=== PATIENT | male | born 1940 | race Caucasian/White ===

== ENCOUNTER 2025-07-07 12:38 | Outpatient (REF) | payer MEDICARE, SELFPAY ==
--- OUTSIDE RECORDS SUMMARY | 2025-07-07 15:45 | XMS_ITS | Clinical Summary ---
Author Organization [facility] Address [address] [place] [address] Phone Care Team Providers Care Shingles Roofer Name Role Phone Diana Maldonado MD Primary Care Provider Allergies Active Allergy Reactions Criticality Noted Date Comments Codeine Anaphylaxis High 07/09/2024 Medications aspirin 81 mg EC tablet 1 TABLET DAILY 12/15/19 08 Active saccharomyces boulardii (FLORASTOR) 250 mg capsule Active metoprolol succinate (TOPROL-XL) 50 mg 24 hr tabletIndication s:Permanent atrial fibrillation (CMS/HCC V24, CMS/HCC V28) TAKE 1 TABLET BY MOUTH EVERY DAY 90 tablet 3 11/17/19 25 Active warfarin (COUMADIN) 5 mg tablet TAKE 1 TABLET BY MOUTH DAILY DIRECTED 90 tablet 2 11/17/19 25 Active atorvastatin (LIPITOR) 20 mg tablet TAKE 1 TABLET (20 MG TOTAL) BY MOUTH ONE TIME EACH DAY 90 tablet 1 02/01/20 25 Active meclizine (ANTIVERT) 12.5 mg tabletIndication s:Dizziness Take 1 tablet (12.5 mg total) by mouth 3 (three) times a day if needed for dizziness. 30 tablet 02/09/20 25 Active tamsulosin (FLOMAX) 0.4 mg 24 hr capsuleIndicatio ns:Chronic obstructive pulmonary disease, unspecified (CMS/HCC V24, CMS/HCC V28),Unspecified atrial fibrillation (CMS/HCC V24, CMS/HCC V28) TAKE 1 CAPSULE BY MOUTH DAILY. TAKE 30 MINS AFTER SAME MEAL EVERY DAY. 90 capsule 1 02/15/20 Active DILT-XR 120 mg 24 hr capsuleIndicatio ns:Primary hypertension TAKE 1 CAPSULE BY MOUTH DAILY FOR 360 DAYS. 90 capsule 3 02/15/20 Active finasteride (PROSCAR) 5 mg tablet TAKE 1 TABLET BY MOUTH EVERY DAY 90 tablet 1 05/27/20 Active PARoxetine (PAXIL) 20 mg tablet TAKE 1 TABLET BY MOUTH EVERY DAY IN THE MORNING 90 tablet 1 07/04/20 25 Active PARoxetine (PAXIL) 20 mg tablet TAKE 1 TABLET BY MOUTH EVERY DAY IN THE MORNING 90 tablet 1 01/11/20 25 025 Discontinued Active Problems Problem Noted Date Diagnosed Date Atrial fibrillation [place] [place] [facility] [place]) 1 09/06/2023 Syncope 03/19/2024 Overview (07/19/2024): Last Assessment & Plan: Patient recently experienced an episode of elevated heart rate accompanied by diaphoresis, shortness of breath and possible syncope. He was alone at the time and he is unsure if he passed out. He was feeling unwell and got himself to the ground where he laid for approximately 20 minutes prior to feeling better and then driving himself home. We will arrange for a nuclear stress test to assess for any Evidence of ischemia given his diaphoresis and arrange for a data processing equipment repairer to assess for any significant cardiac rhythm abnormalities. He has an echocardiogram scheduled for later this year. PVD (peripheral vascular disease) ([facility] [place]) 11/27/2023 Overview (07/19/2024): Last Assessment & Plan: Patient with a history of peripheral vascular disease has been followed by vascular medicine Thoracic aneurysm, ruptured ([facility]24, [facility] V28) 11/27/2023 Overview (07/19/2024): Last Assessment & Plan: Patient's echocardiogram has shown mild dilatation of the ascending aorta. No significant changes on most recent echocardiogram. Deep vein thrombosis (DVT) o f proximal vein of left lower extremity ([facility] [place] [facility] [place]28) 02/14/2023 Renal cyst 09/13/2008 Overview (07/19/2024): Septated, left 09/02, stable 12/02, repeat 6 months Depression with anxiety 09/09/2007 Hypercholesteremia 09/09/2007 Overview (07/19/2024): On med since 1995 Last Assessment & Plan: Patient continues on atorvastatin 20 mg once a day. I have reviewed with the patient the importance of a heart healthy lifestyle which includes eating a low-fat low- salt diet, getting regular exercise, maintaining a healthy weight, not smoking, and following up with routine medical care. Hypertension 09/09/2007 Overview (07/19/2024): DX 1996 Last Assessment & Plan: Patient is blood pressure under excellent control with a reading today of 128/84. He will continue on his present dose of diltiazem as prescribed. 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 He did have a recent COPD exacerbation precipitated by rhinovirus. I do think that with the evidence that we have we can plan ahead with the followin. Referral to the lung cancer screening clinic 2. Encouraged him to continue with abstinence of smoking 3. Start Anoro/Ellipta. Technique has been taught 4. Continue with albuterol as needed 5. Return to clinic in 3 months Tobacco use disorder 09/09/2007 Overview (07/19/2024): Nl echo 12/31 Weight loss 09/09/2007 Encounters Date Type Department Care Team Description 06/27/2025 Telephone Adult Medicine [place] [address] [place] [address] Diana Maldonado MD 06/27/2025 Telephone [facility] [address] [place] [address] Azael Lei MD 06/27/2025 Telephone Adult Medicine - [address] [phone] Diana Maldonado MD 06/24/2025 11:05 AM EDT Lab Draw Station - [place] [address] [place] [address] Atrial fibrillation, unspecified type (CMS/HCC V24, CMS/HCC V28) 06/24/2025 Anticoagulation - Warfarin Visit [facility] [address] [place] [phone] Azael Lei MD Atrial fibrillation, unspecified type (CMS/HCC V24, CMS/HCC V28) (Primary Dx) 06/06/2025 Anticoagulation - Warfarin Visit [facility] [address] [place] [address] Azael Lei MD Atrial fibrillation, unspecified type (CMS/HCC V24, CMS/HCC V28) (Primary Dx) 05/30/2025 Anticoagulation - Warfarin Visit [facility] [address] [place] [address] Azael Lei MD Atrial fibrillation, unspecified type (CMS/HCC V24, CMS/HCC V28) (Primary Dx) 05/02/2025 Anticoagulation - Warfarin Visit [facility] [address] [place] [address] Azael Lei MD Atrial fibrillation, unspecified type (CMS/HCC V24, CMS/HCC V28) (Primary Dx) 04/20/2025 9:30 AM EDT Office Visit Vascular Surgery - [place] [address] [place] [address] Casandra Arias MD PAD (peripheral artery disease) (CMS/HCC V24) (Primary Dx) 04/15/2025 Anticoagulation - Warfarin Visit [facility] [address] [place] [address] Azael Lei MD Atrial fibrillation, unspecified type (CMS/HCC V24, CMS/HCC V28) (Primary Dx) 04/08/2025 Anticoagulation - Warfarin Visit [facility] [address] [facility] [address] [place] [address] Azael Lei MD Atrial fibrillation, unspecified type (CMS/HCC V24, CMS/HCC V28) (Primary Dx) from Last 3 Months Immunizations Immunization Administration Dates Next Due Hepatitis B (Rdbngal-T-Bxels , Recombivax HB-Adult) 19yo and older 11/16/2009,07/13/2009,06/01/2009 Influenza trivalent, 0.5mL ( Fluad) 65yo and older 06/09/2024 Influenza trivalent, 0.5mL ( Fluzone High-dose) 65yo and older 06/09/2023 Influenza trivalent, with pr eservative (Fluzone; Afluria) 6mo and older 09/15/2009 Moderna SARS-CoV-2 COVID-19, mRNA, LNP-S, preservative free 08/15/2021,12/15/2020,11/08/2020 Pneumococcal conjugate 20 va lent (Prevnar 20, PCV 20) 2mo and older 02/08/2025 Pneumococcal polysaccharide 23 valent (Pneumovax 23) 2yo and older 09/15/2009,04/22/2007 Td Tetanus diptheria (Tdvax) 7yo and older 03/04,08/25/2005 Tdap Tetanus diptheria acell ular pertussis (Boostrix; Adacel) 7yo and older 02/08/2025 Surgical History Surgery Date Site/Laterality Comments COLONOSCOPY 10/03/2005 PROCEDURE: HISTORICAL COLONOSCOPY; COMMENT: normal, random bx nl APPENDECTOMY PROCEDURE: HISTORICAL APPENDECTOMY CERVICAL LAMINECTOMY PROCEDURE: HISTORICAL CERV LAMINECTOMY LUMBAR LAMINECTOMY PROCEDURE: HISTORICAL LUMB LAMINECTOMY; COMMENT: L4-5 OTHER SURGICAL HISTORY PROCEDURE: HISTORY OTHER; COMMENT: right index finger OTHER SURGICAL HISTORY 08/25/2003 PROCEDURE: HISTORICAL MELANOMA; COMMENT: removed chest left UPPER GASTROINTESTINAL ENDOSCOPY PROCEDURE: AL UPPER GI ENDOSCOPY PERFORMED; COMMENT: FL historic since 2005, reportedly negative. OTHER SURGICAL HISTORY PROCEDURE: HISTORY OTHER; COMMENT: stent in left LE Medical History Medical History Date Comments Hypertension 09/09/2007 DX:Hypertension Anxiety 09/09/2007 DX:Anxiety Historical Medical DX 09/09/2007 DX:COPD Tobacco use disorder 09/09/2007 DX:Tobacco use disorder Family History Medical History Relation Name Comments Other: afib Brother 1 Alcohol abuse Brother 2 Other: ca mouth Brother 3 Breast cancer Daughter 1 Celiac disease Daughter 2 Depression Daughter 3 Alcohol abuse Father Cirrhosis Father No Known Problems Mother Esophageal cancer Sister 1 No Known Problems Sister 2 Brain Aneurysm Sister 3 Diabetes Sister 4 Diabetes Sister 5 Relation Name Status Comments Brother 1 Brother 2 cirrhosis, alco hol. Brother 3 Alive Daughter 1 Alive Daughter 2 Alive Daughter 3 Alive Father (Age 74) cirrhosis, alcohol Mother hypertension, d iabetes, osteoporosis Sister 1 Sister 2 throat cancer, cig Sister 3 Alive Sister 4 Alive Sister 5 Alive Social History Tobacco Use Types Packs/Day Years Used Date Smoking Tobacco: Every Day Cigarettes 0.5 Last attempted to quit: 08/14/2023 Smokeless Tobacco: Never Tobacco Cessation:Ready to Q uit: Not Asked; Counseling Given: Not Answered Alcohol Use Standard Drinks/Week Comments No 0 (1 standard drink = 0.6 oz pur e alcohol) Housing Instability Answer Date Recorde d Are you worried that in the next 2 months you may not have stable housing? No 02/08/2025 Food Access & Nutrition Answer Date Rec orded Do you have access to a vari ety of food including fruits and vegetables? Yes 02/08/2025 Access to Healthcare Answer Date Record ed Within the last 3 months, ho w many times did you visit the emergency department for your medical care? 2 02/08/2025 Health Literacy Answer Date Recorded How often do you need to hav e someone help you when you read instructions, pamphlets, or other written material from your doctor or pharmacy? Never 02/08/2025 Caregiver: How often do you need to have someone help you when you read instructions, pamphlets, or other written material from your doctor or pharmacy? Not on file 02/08/2025 Financial Risk Answer Date Recorded How hard is it for you to pa y for the very basics like food, housing, medical care, and air conditioning / heating? Not very hard 02/08/2025 Transportation Answer Date Recorded Has the lack of transportati on kept you from meetings, work, or from getting things needed for daily living? No Has the lack of transportati on kept you from medical appointments or from getting medications? No 02/08/2025 Social Isolation Answer Date Recorded How often do you feel lonely or isolated from th ose around you? Never 02/08/2025 Food Risk Answer Date Recorded Within the past 12 months we worried whether our food would run out before we got money to buy more. Never true 02/08/2025 Within the past 12 months th e food we bought just didn't last and we didn't have money to get more. Never true 02/08/2025 Dependent Care Answer Date Recorded Do you need help finding or paying for care for your loved ones. For example, child development professor or elderly care for an older adult? No 02/08/2025 Education Answer Date Recorded Do you think completing more education or training, like finishing a GED, going to college, or learning a trade, would be helpful for you? No 02/08/2025 Employment and Income Answer Date Recor ded During the last four weeks, have you been actively looking for work? No 02/08/2025 Living Situation Answer Date Recorded What is your living situation? Unrecognized valu e 02/08/2025 Sex and Gender Information Value Date Recorded Sex Assigned at Male 10/15/2024 11:48 AM EST Legal Sex Male 8:23 PM EST Gender Identity Male 10/15/2024 11:48 AM EST Sexual Orientation Straight 10/15/2024 11 :48 AM EST Obstetrics History Last Filed Vital Signs Vital Sign Reading Time Taken Comments Blood Pressure 117/82 04/20/2025 9:21 AM EDT Pulse 77 04/20/2025 9:21 AM EDT Temperature 36.2 C (97.1 F) 02/08/2025 10:25 AM EDT Respiratory Rate 16 10/11/2024 9:50 AM EST Oxygen Saturation 95% 07/09/2024 2:48 PM EST Inhaled Oxygen Concentration - - Weight 84.9 kg (187 lb 3.2 oz) 04/20/2025 9:21 A M EDT Height 177.8 cm (5' 10 ) 04/20/2025 9:21 AM EDT Body Mass Index 26.86 04/20/2025 9:21 AM EDT Plan of Treatment Upcoming Encounters Date Type Department Care Team (Late Contact Info) Description 07/11/2025 11:30 AM EST Office Visit Adult Medicine - [place] [address] [place] [phone] Diana Maldonado MD [address] [place] [address] 07/28/2025 3:30 PM EST Office Visit Adult Medicine [facility] [address] [place] [phone] Diana Maldonado MD [address] [place] [address] 03/02/2026 9:15 AM EDT Ancillary Procedure [facility] - [facility] [address] [facility] [address] [place] [address] 04/20/2026 9:30 AM EDT Office Visit Vascular Surgery - [place] [address] [place] [address] Casandra Arias MD [address] [place] [phone] Health Maintenance Due Date Last Done Comments Zoster Vaccines (1 of 2) 1992 RSV Immunization Adult Patients (1 - 1-dose 75+ series) 2017 COVID-19 Vaccine ( season) 2025 08/15/2021, 06/25/2021, 12/15/2020, Additional history exists Influenza Vaccine (#1) 2025 , 06/09/2023, 08/09/2021, Additional history exists Hypertension/CHF/CAD Annual BMP Blood Test 10/11/2025 10/11/2024, 06/11/2024, 06/11/2024 Falls Risk Assessment 02/08/2026 02/08/2025 Medicare Annual Wellness Visit 02/08/2026 02/08/2025 Social Influencers of Health Screening 02/08/2026 02/08/2025 Cholesterol Screening (Lipid Panel) 10/11/2029 10/11/2024, 06/11/2024, 06/11/2024 DTaP,Tdap,and Td Vaccines (4 - Td or Tdap) 02/08/2035 02/08/2025, 03/04/2008, 08/25/2005 Hepatitis B Vaccines Completed 11/16/2009, 07/13/2009, 06/01/2009 Depression Screening Completed 02/08/2025 Pneumococcal Vaccine: 50+ Years Completed 02/08/2025, 04/16/2016, 04/04/2014, Additional history exists HIB Vaccines Aged Out No longer eligi ble based on patient's age to complete this topic HPV Vaccines Aged Out No longer eligi ble based on patient's age to complete this topic Hepatitis A Vaccines Aged Out No long er eligible based on patient's age to complete this topic IPV Vaccines Aged Out No longer eligi ble based on patient's age to complete this topic MMR Vaccines Aged Out No longer eligi ble based on patient's age to complete this topic Meningococcal ACWY Vaccine Aged Out N o longer eligible based on patient's age to complete this topic Meningococcal B Vaccine Aged Out No l onger eligible based on patient's age to complete this topic RSV Immunization Patients Under 20 months Aged Out No longer eligible based on patient's age to complete this topic Varicella Vaccines Aged Out No longer eligible based on patient's age to complete this topic Procedures Procedure Name Priority Date/Time Associated Diagnosis Comments PROTHROMBIN TIME WITH INR Routine 06/24/2025 11:05 AM EDT Atrial fibrillation, unspecified type (CMS/HCC V24, CMS/HCC V28) PROTHROMBIN TIME WITH INR Routine 06/06/2025 11:07 AM EDT Atrial fibrillation, unspecified type (CMS/HCC V24, CMS/HCC V28) PROTHROMBIN TIME WITH INR Routine 05/30/2025 11:51 AM EDT Atrial fibrillation, unspecified type (CMS/HCC V24, CMS/HCC V28) PROTHROMBIN TIME WITH INR Routine 05/02/2025 10:28 AM EDT Atrial fibrillation, unspecified type (CMS/HCC V24, CMS/HCC V28) PROTHROMBIN TIME WITH INR Routine 04/15/2025 11:42 AM EDT Atrial fibrillation, unspecified type (CMS/HCC V24, CMS/HCC V28) PROTHROMBIN TIME WITH INR Routine 04/08/2025 1:30 PM EDT Atrial fibrillation, unspecified type (CMS/HCC V24, CMS/HCC V28) COMPREHENSIVE METABOLIC PANEL Routine 10/11/2024 10:48 AM EST Stage 2 moderate COPD by GOLD classification (CMS/HCC V24, CMS/HCC V28) Paroxysmal atrial fibrillation (CMS/HCC V24, CMS/HCC V28) Mixed hyperlipidemia PVD (peripheral vascular disease) (CMS/HCC V24) Smoker Chronic midline low 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 sciatica Tinnitus, left Hx of laminectomy Muscle spasm Diet-controlled diabetes mellitus (CMS/HCC V24, CMS/HCC V28) LIPID PANEL WITH REFLEX TO DIRECT LDL Routine 10/11/2024 10:48 AM EST Stage 2 moderate COPD by GOLD classification (CMS/HCC V24, CMS/HCC V28) Paroxysmal atrial fibrillation (CMS/HCC V24, CMS/HCC V28) Mixed hyperlipidemia PVD (peripheral vascular disease) (CMS/HCC V24) Smoker Chronic 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 Protime 22.6(H) 10.6 - 13.9 sec LAB COAGULATION METHOD 06/24/2025 11:53 AM [facility] INR 1.8 LAB COAGULATION METHOD 06/24/2025 11:53 AM [facility] Blood Venous blood specimen / Unknown Venipuncture / Unknown 06/24/2025 11:05 AM EDT 06/24/2025 11:05 AM EDT us Azael Lei MD LAB BLOOD ORDERABLES Final Res ult [facility] [address] [place] [address], [place] [phone] * Lipid panel with reflex to direct LDL (10/11/2024 10:48 AM EST) Cholesterol 123 0 - 200 mg/dL LAB CHEMISTRY METHOD 10/11/2024 12:33 PM EST [facility] Triglycerides 109 0 - 150 mg/dL LAB CHEMISTRY METHOD 10/11/2024 12:33 PM EST [facility] HDL 45 >=40 mg/dL LAB CHEMISTRY METHOD 10/11/2024 12:33 PM [facility] LDL Calculated 56 0 - 100 mg/dL LAB CHEMISTRY METHOD 10/11/2024 12:33 PM EST [facility] VLDL Cholesterol Ketan 21.8 mg/dL LAB CHEMISTRY METHOD 10/11/2024 12:33 PM EST [facility] Non HDL Chol. (LDL+VLDL) 78 <145 mg/dL LAB CHEMISTRY METHOD 10/11/2024 12:33 PM [facility] Chol/HDL Ratio 2.7 0.0 - 4.4 LAB CHEMISTRY METHOD 10/11/2024 12:33 PM [facility] Blood Venous blood specimen / Unknown Venipuncture / Unknown 10/11/2024 10:48 AM EST 10/11/2024 10:48 AM EST Diana Maldonado MD LAB BLOOD ORDERABLES F inal Result Performing Organization Address City/[facility]/ZIP Co de Phone Number [facility] [address] [place] [address], [place] [phone] * (ABNORMAL) Comprehensive metabolic panel (10/11/2024 10:48 AM EST) Sodium 142 133 - 145 mmol/L LAB CHEMISTRY METHOD 10/11/2024 12:33 PM [facility] Potassium 4.0 3.5 - 5.5 mmol/L LAB CHEMISTRY METHOD 10/11/2024 12:33 PM [facility] Chloride 109 96 - 110 mmol/L LAB CHEMISTRY METHOD 10/11/2024 12:33 PM [facility] CO2 26 21 - 32 mmol/L LAB CHEMISTRY METHOD 10/11/2024 12:33 PM [facility] Anion Gap 7 3 - 11 LAB CHEMISTRY METHOD 10/11/2024 12:33 PM [facility] Glucose 111(H) 70 - 100 mg/dL LAB CHEMISTRY METHOD 10/11/2024 12:33 PM [facility] BUN 16 5 - 25 mg/dL LAB CHEMISTRY METHOD 10/11/2024 12:33 PM [facility] Creatinine 1.11 0.70 - 1.30 mg/dL LAB CHEMISTRY METHOD 10/11/2024 12:33 PM [facility] eGFR 67 >=60 mL/min/1. 73m2 LAB CHEMISTRY METHOD 10/11/2024 12:33 PM [facility] Comment:Calculation based on the Chronic Kidney Disease Epidemiology Collaboration (CKD-EPI) equation refit without adjustment for race. BUN/Creatinine Ratio 14.4 LAB CHEMISTRY METHOD 10/11/2024 12:33 PM [facility] Calcium 8.5 8.5 - 10.5 mg/dL LAB CHEMISTRY METHOD 10/11/2024 12:33 PM [facility] AST (SGOT) 18 10 - 42 unit/L LAB CHEMISTRY METHOD 10/11/2024 12:33 PM [facility] ALT (SGPT) 16 10 - 60 unit/L LAB CHEMISTRY METHOD 10/11/2024 12:33 PM [facility] Alkaline Phosphatase 90 42 - 121 unit/L LAB CHEMISTRY METHOD 10/11/2024 12:33 PM EST [facility] Total Protein 6.2 6.0 - 8.0 g/dL LAB CHEMISTRY METHOD 10/11/2024 12:33 PM EST [facility] Albumin 3.4 3.2 - 5.0 g/dL LAB CHEMISTRY METHOD 10/11/2024 12:33 PM EST [facility] Total Bilirubin 0.7 0.0 - 1.4 mg/dL LAB CHEMISTRY METHOD 10/11/2024 12:33 PM EST [facility] Blood Venous blood specimen / Unknown Venipuncture / Unknown 10/11/2024 10:48 AM EST 10/11/2024 10:48 AM EST us Diana Maldonado MD LAB BLOOD ORDERABLES F inal Result [facility] [address] [place] [address], [place] [phone] from Last 3 Months or Most Recently Relevant to Health Maintenance Insurance [employer]AGE on file MEDICARE Care Teams Shingles Roofer Relationship Specialty Start Date End Date Diana Maldonado MD [address] [place] [id number] PCP - General 01/17/23
--- OUTSIDE RECORDS SUMMARY | 2025-07-07 15:46 | XMS_ITS | Data Portability ---
Author Organization [facility] [employer], [facility] Address [address] [place] [address] Care Team Providers Care Organic Extractions Technician Name Role Phone DOUG MAYA Primary Care Provider [phone] DOUG MAYA Referring Provider [phone] DALIA BERRY OTHER [phone] Assessment Encounter Date Assessment Date Assessment LastModified by Organization Details LastModified Time 07/04/2022 07/04/2022 Established patient. [email or web address] Not available 07/04/2022 12:13:15 Plan of Treatment Reminders Order Date Submit Date Provider Last Modified By Organization Details Last Modified Time Details Appointments None recorded. Lab rapid influenza virus A + B and SARS CoV + SARS CoV 2 Ag panel, IA, upper respiratory specimen 2021 MARYBETH In-Office Order, Internal Use Only DO Not Attach Compendium DO Not Attach Compendium, Do Not Delete/merge, 11:53:50 rapid influenza virus A + B and SARS CoV + SARS CoV 2 Ag panel, IA, upper respiratory specimen 2021 [email or web address] In-Office Order, Internal Use Only DO Not Attach Compendium DO Not Attach Compendium, Do Not Delete/merge, 17:39:55 uric acid, serum or plasma 2021 [place] [facility], [address] [place], [place] [address]y [address], [place], [address], 16:38:54 iron + TIBC + ferritin, serum 2021 [email or web address] [facility], [address], [place], [address], 3 11:58:42 vitamin B12 + folate, serum or blood 2021 [email or web address] [facility], [address], [place], [address], 11:58:42 PSA, serum or plasma 2021 [facility], [address], [place], [address], 06:10:16 [facility], [facility], [address], [place], [address], 06:10:09 [facility], [address], [place], [address], 13:13:09 CMP, serum or plasma 2021 [facility], [address], [place], [address], 13:32:24 TSH, serum or plasma 2021 [facility], [address], [place], [address], 06:10:15 urinalysis, complete 2021 [facility], [address], [place], [address], 06:10:16 uric acid, serum or plasma 2021 022 [email or web address] [id number] [facility], [address], [place], [address], 10:01:25 Referral pain management referral 2021 022 [email or web address] Not available 15:55:21 Procedures None recorded. Surgeries None recorded. Imaging US, abdominal aorta 2021 023 [email or web address] [facility], [facility], All Locations, [place], [address], 3 11:44:45 XR, ankle, 3 or more view 2021 022 [facility], [facility], All Locations, [place], [address], 16:57:41 US, groin 2021 [facility], [facility], All Locations, [place], [address], 16:01:46 Medication Orders lorazepam 0.5 mg tablet 2021 022 [email or web address] 7 [facility], [address] [place], [address], 11:34:29 methocarbam ol 750 mg tablet 2021 [facility], [address] [place], [address], 2 12:14:42 Depo-Medrol 40 mg/mL suspension for injection 2021 [email or web address] Not available 13:26:30 prednisone 10 mg tablet 2021 [facility], [address] [place], [address], 12:00:22 doxycycline hyclate 100 mg capsule 2021 [facility], [address] [place], [address], 12:00:17 benzonatate 200 mg capsule 2021 [facility], [address] [place], [address], 12:00:06 prednisone 10 mg tablet 2021 [facility] [address], [address] [place], [address], 11:45:27 Patient TargetsNo targets recorded. Patient Instructions Encounter Date Encounter Id Patient Instructions Last Modified By Organization Details Last Modified Time 02/21/2022 [id number] inguinal hernia: care instructions [email or web address] Not available 02/21/2022 10:20:23 04/04/2022 [id number] Will call with Xray and lab. [email or web address] Not available 04/04/2022 14:11:24 Patient understands instructions and will seek medical attention if symptoms worsen as directed. [email or web address] Not available 04/04/2022 14:12:14 06/13/2022 [id number] Meds as prescribed. Return to clinic if symptoms persist or worsen. Patient states understanding and agrees with this plan. [email or web address] Not available 06/13/2022 17:45:54 07/04/2022 [id number] Patient is encouraged to follow-up with PCP for all primary care, and chronic disease management. Patient is also encouraged to contact primary care for initial directive for acute illness management, and utilize the walk-in clinic, when the PCP is not available. [email or web address] Not available 07/04/2022 20:04:55 Patient understands instructions and will seek medical attention if symptoms worsen as directed. 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 Referring Physician: Sim Murguia, Family Medicine, Encounter Date: 02/21/2022 Results Created Date Observation Date Name Description Value Unit Range Abnormal Flag Note LastModifiedBy Organization Detail LastModifiedTime 02/15/20 22 02/14/2022 URINA LYSIS , COMPL ETE W/ REFLE X TO CULTU RE color YELLOW yellow Not Available [facility] [address] [facility] [address] [place], [address], 02/14/2022 13:32:58 02/15/20 22 02/14/2022 URINA LYSIS , COMPL ETE W/ REFLE X TO CULTU RE appearance CLEAR clear Not Available [facility] [address] [facility] [address] [place], [address], 02/14/2022 13:32:58 02/15/20 22 02/14/2022 URINA LYSIS , COMPL ETE W/ REFLE X TO CULTU RE specific gravity 1.018 1.005- 1.030 Not Available [facility] [address] [place] [address] [address] [place], [address], 02/14/2022 13:32:58 02/15/20 22 02/14/2022 URINA LYSIS , COMPL ETE W/ REFLE X TO CULTU RE pH 6.50 5.00-8 .00 Not Available [facility] [address] [facility] [address] [place], [address], 02/14/2022 13:32:58 02/15/20 22 02/14/2022 URINA LYSIS , COMPL ETE W/ REFLE X TO CULTU RE glucose NEGATI VE mg/dL negati ve Not Available [facility] [address], [place], [address], 02/14/2022 13:32:58 02/15/20 22 02/14/2022 URINA LYSIS , COMPL ETE W/ REFLE X TO CULTU RE bilirubin NEGATI VE mg/dL negati ve Not Available [facility] [address] [place] [address] [address], [place], [address], 02/14/2022 13:32:58 02/15/20 22 02/14/2022 URINA LYSIS , COMPL ETE W/ REFLE X TO CULTU RE ketone NEGATI VE mg/dL negati ve Not Available [facility] [address] [place] [address] [address], [place], [address], 02/14/2022 13:32:58 02/15/20 22 02/14/2022 URINA LYSIS , COMPL ETE W/ REFLE X TO CULTU RE blood TRACE mg/dL negati ve abnormal Micro scopi c is indic ated for trace blood , trace leuko cytes + nitri gunner, or 1+ prote in. All other s are consi dered negat mehul and no micro scopi c neede d. Not Available [facility] [address] [place] [address] [address] [facility], [place], [address], 02/14/2022 13:32:58 02/15/20 22 02/14/2022 URINA LYSIS , COMPL ETE W/ REFLE X TO CULTU RE protein NEGATI VE mg/dL negati ve Not Available [facility] [address] [place] [address] [address], [place], [address], 02/14/2022 13:32:58 02/15/20 22 02/14/2022 URINA LYSIS , COMPL ETE W/ REFLE X TO CULTU RE urobilinogen NORMAL E.U./ dL normal Not Available [facility] [address] [place] [address] [address], [place], [address], 02/14/2022 13:32:58 02/15/20 22 02/14/2022 URINA LYSIS , COMPL ETE W/ REFLE X TO CULTU RE nitrite NEGATI VE negati ve Not Available [facility] [address] [facility] [address], [place], [address], 02/14/2022 13:32:58 02/15/20 22 02/14/2022 URINA LYSIS , COMPL ETE W/ REFLE X TO CULTU RE leukocytes NEGATI VE eric/u L negati ve A Cultu re will refle x when any of the follo wing crite mike is met: - Posit mehul Nitri te - Small , Moder ate or Large Leuko cytes - => 6 WBC/H PF - 4+ Bacte mike on micro scopi c exami natio n - Any amoun t of YEAST on micro scopi c exam Not Available [facility] [address] [facility] [address], [place], [address], 02/14/2022 13:32:58 02/15/20 22 02/14/2022 UAMIC UWBC 1 #/hpf 0-3 Not Available [facility] [address] [place], [place] [address]y [address], [place], [address], 02/14/2022 13:32:59 02/15/20 22 02/14/2022 UAMIC URBC 8 #/hpf 0-3 high Not Available [facility] [address] [facility] [address], [place], [address], 02/14/2022 13:32:59 02/15/20 22 02/14/2022 UAMIC epithelial cells 1 /hpf 0-10 Not Available [facility] [address] [facility] [address] [place], [address], 02/14/2022 13:32:59 02/15/20 22 02/14/2022 UAMIC bacteria NEGATI VE /uL none seen Not Available [facility] [facility] [address], [place], [address], 02/14/2022 13:32:59 02/15/20 22 02/14/2022 T4, FREE T4, free 0.90 NG/dL 0.93-1 .70 low Not Available [facility] [address] [place], [place] [address], [place], [address], 02/14/2022 13:36:44 02/15/20 22 02/14/2022 CBC W/ AUTOD IFF, COMPL ETE BLOOD COUNT WBC 9.2 K/uL 3.6-10 .0 Not Available [facility] [address] [place], [place] [address], [place], [address], 02/14/2022 13:45:52 02/15/20 22 02/14/2022 CBC W/ AUTOD IFF, COMPL ETE BLOOD COUNT nucleated RBC 0.10 % 0.00-2 .00 Not Available [facility] [address], [place], [address], 02/14/2022 13:45:52 02/15/20 22 02/14/2022 CBC W/ AUTOD IFF, COMPL ETE BLOOD COUNT RBC 4.07 M/uL 4.10-5 .80 low Not Available [facility] [address] [place], [place] [address], [place], [address], 02/14/2022 13:45:52 02/15/20 22 02/14/2022 CBC W/ AUTOD IFF, COMPL ETE BLOOD COUNT HGB 12.3 g/dL 13.2-1 7.0 low Not Available [facility] [address] [place], [place] [address], [place], [address], 02/14/2022 13:45:52 02/15/20 22 02/14/2022 CBC W/ AUTOD IFF, COMPL ETE BLOOD COUNT hematocrit 36.80 % 37.00- 51.00 low Not Available [facility], [place], [address], 02/14/2022 13:45:52 02/15/20 22 02/14/2022 CBC W/ AUTOD IFF, COMPL ETE BLOOD COUNT MCV 90.6 fL 80.0-9 9.0 Not Available [facility] [address] [place] [address] [address], [place], [address], 02/14/2022 13:45:52 02/15/20 22 02/14/2022 CBC W/ AUTOD IFF, COMPL ETE BLOOD COUNT MCH 30.2 pg 27.0-3 3.0 Not Available [facility] [address] [place] [address] [address], [place], [address], 02/14/2022 13:45:52 02/15/20 22 02/14/2022 CBC W/ AUTOD IFF, COMPL ETE BLOOD COUNT MCHC 33.3 g/dL 32.0-3 6.0 Not Available [facility] [address] [place] [address] [address], [place], [address], 02/14/2022 13:45:52 02/15/20 22 02/14/2022 CBC W/ AUTOD IFF, COMPL ETE BLOOD COUNT platelets 251 K/uL 140-44 0 Not Available [facility] [address] [place] [address] [address], [place], [address], 02/14/2022 13:45:52 02/15/20 22 02/14/2022 CBC W/ AUTOD IFF, COMPL ETE BLOOD COUNT RDW 14.8 % 11.0-1 5.0 Not Available [facility] [address] [place] [address] [address], [place], [address], 02/14/2022 13:45:52 02/15/20 22 02/14/2022 CBC W/ AUTOD IFF, COMPL ETE BLOOD COUNT MPV 7.9 fL 7.4-10 .4 Not Available [facility] [address], [place], [address], 02/14/2022 13:45:52 02/15/20 22 02/14/2022 CBC W/ AUTOD IFF, COMPL ETE BLOOD COUNT neutrophil, % 64.6 % Not Available [facility] [address], [place], [address], 02/14/2022 13:45:52 02/15/20 22 02/14/2022 CBC W/ AUTOD IFF, COMPL ETE BLOOD COUNT lymphocyte % 22.4 % Not Available [facility] [address], [place], [address], 02/14/2022 13:45:52 02/15/20 22 02/14/2022 CBC W/ AUTOD IFF, COMPL ETE BLOOD COUNT monocyte % 10.2 % Not Available [facility] [address], [place], [address], 02/14/2022 13:45:52 02/15/20 22 02/14/2022 CBC W/ AUTOD IFF, COMPL ETE BLOOD COUNT eosinophil % 2.2 % Not Available [facility] [address], [place], [address], 02/14/2022 13:45:52 02/15/20 22 02/14/2022 CBC W/ AUTOD IFF, COMPL ETE BLOOD COUNT basophil % 0.6 % Not Available [facility] [address], [place], [address], 02/14/2022 13:45:52 02/15/20 22 02/14/2022 CBC W/ AUTOD IFF, COMPL ETE BLOOD COUNT neutrophil, # 5.9 K/uL 1.5-7. 5 Not Available [facility] [address] [place] [address] [address], [place], [address], 02/14/2022 13:45:52 02/15/20 22 02/14/2022 CBC W/ AUTOD IFF, COMPL ETE BLOOD COUNT lymphocyte # 2.1 K/uL 0.8-4. 0 Not Available [facility] [address] [place] [address] [address], [place], [address], 02/14/2022 13:45:52 02/15/20 22 02/14/2022 CBC W/ AUTOD IFF, COMPL ETE BLOOD COUNT monocyte # 0.9 K/uL 0.1-1. 0 Not Available [facility] [address] [place] [address] [address] [place], [address], 02/14/2022 13:45:52 02/15/20 22 02/14/2022 CBC W/ AUTOD IFF, COMPL ETE BLOOD COUNT eosinophil # 0.2 K/uL 0.1-1. 0 Not Available [facility] [address] [place] [address] [address], [place], [address], 02/14/2022 13:45:52 02/15/20 22 02/14/2022 CBC W/ AUTOD IFF, COMPL ETE BLOOD COUNT basophil # 0.1 K/uL 0.0-0. 2 Not Available [facility] [address] [place] [address] [address], [place], [address], 02/14/2022 13:45:52 02/15/20 22 02/14/2022 CMP, COMPR EHENS MEHUL METAB OLIC PANEL glucose 141 mg/dL 70-100 high Not Available [facility] [address] [place] [address] [address], [place], [address], 02/14/2022 13:45:54 02/15/20 22 02/14/2022 CMP, COMPR EHENS MEHUL METAB OLIC PANEL BUN 12 mg/dL 7-25 Not Available [facility] [address] [facility] [address], [place], [address], 02/14/2022 13:45:54 02/15/20 22 02/14/2022 CMP, COMPR EHENS MEHUL METAB OLIC PANEL creatinine 1.0 mg/dL 0.6-1. 3 Not Available [facility] [address] [facility] [address], [place], [address], 02/14/2022 13:45:54 02/15/20 22 02/14/2022 CMP, COMPR EHENS MEHUL METAB OLIC PANEL BUN/creatini ne ratio 12.00 calc Not Available [facility] [address] [facility] [address], [place], [address], 02/14/2022 13:45:54 02/15/20 22 02/14/2022 CMP, COMPR EHENS MEHUL METAB OLIC PANEL eGFR 93 mL/mi n/1.7 3m2 >60 THREE CONSE CUTIV E VALUE S <60 mL/mi n COULD BE INDIC ATIVE OF KIDNE Y DISEA SE. Not Available [facility] [address] [facility] [address], [place], [address], 02/14/2022 13:45:54 02/15/20 22 02/14/2022 CMP, COMPR EHENS MEHUL METAB OLIC PANEL eGFR non- 77 mL/mi n/1.7 3m2 >60 THREE CONSE CUTIV E VALUE S < 60 mL/mi n COULD BE INDIC ATIVE OF KIDNE Y DISEA SE Not Available [facility] [address] [facility] [address], [place], [address], 02/14/2022 13:45:54 02/15/20 22 02/14/2022 CMP, COMPR EHENS MEHUL METAB OLIC PANEL sodium 142 mmol/ L 135-14 5 Not Available [facility] [address] [facility] [address], [place], [address], 02/14/2022 13:45:54 02/15/20 22 02/14/2022 CMP, COMPR EHENS MEHUL METAB OLIC PANEL potassium 3.9 mmol/ L 3.5-5. 5 Not Available [facility] [address] [facility] [address], [place], [address], 02/14/2022 13:45:54 02/15/20 22 02/14/2022 CMP, COMPR EHENS MEHUL METAB OLIC PANEL chloride 103 mmol/ L 100-11 5 Not Available [facility] [address] [facility] [address], [place], [address], 02/14/2022 13:45:54 02/15/20 22 02/14/2022 CMP, COMPR EHENS MEHUL METAB OLIC PANEL CO2 33 mmol/ L 21-33 Not Available [facility] [address] [facility] [address], [place], [address], 02/14/2022 13:45:54 02/15/20 22 02/14/2022 CMP, COMPR EHENS MEHUL METAB OLIC PANEL anion gap 5.9 calc Not Available [facility] [address] [facility] [address], [place], [address], 02/14/2022 13:45:54 02/15/20 22 02/14/2022 CMP, COMPR EHENS MEHUL METAB OLIC PANEL calcium 8.9 mg/dL 8.8-10 .6 Not Available [facility] [address] [facility] [address], [place], [address], 02/14/2022 13:45:54 02/15/20 22 02/14/2022 CMP, COMPR EHENS MEHUL METAB OLIC PANEL total protein 6.0 g/dL 6.2-8. 6 low Not Available [facility] [address], [place], [address], 02/14/2022 13:45:54 02/15/20 22 02/14/2022 CMP, COMPR EHENS MEHUL METAB OLIC PANEL albumin 3.7 g/dL 3.5-5. 7 Not Available [facility] [address] [place], [place] [address], [place], [address], 02/14/2022 13:45:54 02/15/20 22 02/14/2022 CMP, COMPR EHENS MEHUL METAB OLIC PANEL globulin 2.3 g/dL 1.3-4. 0 Not Available [facility] [address] [place], [place] [address], [place], [address], 02/14/2022 13:45:54 02/15/20 22 02/14/2022 CMP, COMPR EHENS MEHUL METAB OLIC PANEL A/G ratio 1.6 calc 1.0-2. 8 Not Available [facility] [address] [place], [place] [address]y [address] [place], [address], 02/14/2022 13:45:54 02/15/20 22 02/14/2022 CMP, COMPR EHENS MEHUL METAB OLIC PANEL AST (SGOT) 13 U/L 13-39 Not Available [facility] [address] [place], [place] [address], [place], [address], 02/14/2022 13:45:54 02/15/20 22 02/14/2022 CMP, COMPR EHENS MEHUL METAB OLIC PANEL ALT (SGPT) 11 U/L 7-52 Not Available [facility] [address] [place], [place] [address], [place], [address], 02/14/2022 13:45:54 02/15/20 22 02/14/2022 CMP, COMPR EHENS MEHUL METAB OLIC PANEL total bilirubin 0.64 mg/dL 0.30-1 .00 Not Available [facility] [address] [facility] [address] [place], [address], 02/14/2022 13:45:54 02/15/20 22 02/14/2022 CMP, COMPR EHENS MEHUL METAB OLIC PANEL alkaline phosphatase 77 U/L 20-128 Not Available [facility] [address] [facility] [address] [place], [address], 02/14/2022 13:45:54 02/15/20 22 02/14/2022 LIPID PANEL REF DLDL cholesterol 136 mg/dL 20-180 EXPEC MARYELLEN RESUL TS for ADULT S: Total cyndy stero l: Risk Class ifica tion: <200 mg/dl Ricky able 200-2 39 mg/dl Borde rline high >240 mg/dl High Not Available [facility] [address] [facility] [address] [place], [address], 02/14/2022 13:45:55 02/15/20 22 02/14/2022 LIPID PANEL REF DLDL triglyceride 84 mg/dL 30-150 Not Available [facility] [address] [facility] [address] [place], [address], 02/14/2022 13:45:55 02/15/20 22 02/14/2022 LIPID PANEL REF DLDL HDL cholesterol 46 mg/dL 23-92 Not Available [facility] [address] [facility] [address] [place], [address], 02/14/2022 13:45:55 02/15/20 22 02/14/2022 LIPID PANEL REF DLDL VLDL cholesterol 16.80 mg/dL Not Available [facility] [address] [facility] [address] [place], [address], 02/14/2022 13:45:55 02/15/20 22 02/14/2022 LIPID PANEL REF DLDL chol/HDL risk ratio 3 calc <3.5 OPTIM AL Not Available [facility] [address] [place], [address], 02/14/2022 13:45:55 02/15/20 22 02/14/2022 LIPID PANEL REF DLDL non-HDL cholesterol 90 mg/dL RICKY ABLE IS <130 mg/dl Not Available [facility] [address] [place], [address], 02/14/2022 13:45:55 02/15/20 22 02/14/2022 LIPID PANEL REF DLDL LDL calculated 73 mg/dL 0-99 Not Available [facility] [address] [place] [address] [address] [facility], [place], [address], 02/14/2022 13:45:55 02/15/20 22 02/14/2022 TSH, THYRO ID STIMU LATIN G HORMO NE TSH II 3.6500 uIU/m L 0.2700 -4.200 0 Not Available [facility] [address] [place] [address], [address], 02/14/2022 13:45:56 02/15/20 22 02/14/2022 VENIP UNCTU RE results Compl ete Not Available [facility] [address] [place] [address], [address], 02/14/2022 08:34:19 04/04/20 22 04/04/2022 URIC ACID uric acid 5.4 mg/dL 4.4-7. 6 Not Available [facility] [address] [place] [address], [address], 04/04/2022 16:38:54 04/04/20 22 04/04/2022 VENIP UNCTU RE results Compl ete Not Available [facility] [address] [facility], [place], [address], 04/04/2022 14:19:46 06/13/2006/13/2022 rapid influ amrita virus A + B and SARS CoV + SARS CoV 2 Ag panel , IA, upper respi rator y speci men INFLUENZA TYPE A NEGATI VE Not Available In-Office Order Internal Use Only DO Not Attach Compendium DO Not Attach Compendium, Do Not Delete/merge, 06/13/2022 17:17:23 06/13/2006/13/2022 rapid influ amrita virus A + B and SARS CoV + SARS CoV 2 Ag panel , [place], upper respi rator y speci men INFLUENZA TYPE B NEGATI VE Not Available In-Office Order Internal Use Only DO Not Attach Compendium DO Not Attach Compendium, Do Not Delete/merge, 06/13/2022 17:17:23 06/13/2006/13/2022 rapid influ amrita virus A + B and SARS CoV + SARS CoV 2 Ag panel , IA, upper respi rator y speci men Rapid SARS COV, ANTIGEN NEGATI VE Not Available In-Office Order Internal Use Only DO Not Attach Compendium DO Not Attach Compendium, Do Not Delete/merge, 06/13/2022 17:17:23 06/13/2006/13/2022 rapid influ amrita virus A + B and SARS CoV + SARS CoV 2 Ag panel , [place], upper respi rator y speci men INTERNAL CONTROL VALID Not Available In-Off ice Order Internal Use Only DO Not Attach Compendium DO Not Attach Compendium, Do Not Delete/merge, 06/13/2022 17:17:23 06/13/2006/13/2022 rapid influ amrita virus A + B and SARS CoV + SARS CoV 2 Ag panel , [place], upper respi rator y speci men Is this patient's first COVID test? No Not Available In-Off ice Order Internal Use Only DO Not Attach Compendium DO Not Attach Compendium, Do Not Delete/merge, 06/13/2022 17:17:23 06/13/20 22 06/13/2022 rapid influ amrita virus A + B and SARS CoV + SARS CoV 2 Ag panel , [place], upper respi rator y speci men Is patient employed in healthcare? No Not Available In-O ffice Order Internal Use Only DO Not Attach Compendium DO Not Attach Compendium, Do Not Delete/merge, [id number] 06/13/2022 17:17:23 06/13/2006/13/2022 rapid influ amrita virus A + B and SARS CoV + SARS CoV 2 Ag panel , [place], upper respi rator y speci men Is patient symptomatic of COVID-19? Yes Not Available In- Office Order Internal Use Only DO Not Attach Compendium DO Not Attach Compendium, Do Not Delete/merge, [id number] 06/13/2022 17:17:23 06/13/2006/13/2022 rapid influ amrita virus A + B and SARS CoV + SARS CoV 2 Ag panel , [place], upper respi rator y speci men If yes, date of onset (mm/dd/yyyy) ? 2021 Not Available In-Office Order Internal Use Only DO Not Attach Compendium DO Not Attach Compendium, Do Not Delete/merge, [id number] 06/13/2022 17:17:23 06/13/2006/13/2022 rapid influ amrita virus A + B and SARS CoV + SARS CoV 2 Ag panel , [place], upper respi rator y speci men If female, is patient ? No Not Available In-Off ice Order Internal Use Only DO Not Attach Compendium DO Not Attach Compendium, Do Not Delete/merge, [id number] 06/13/2022 17:17:23 06/13/2006/13/2022 rapid influ amrita virus A + B and SARS CoV + SARS CoV 2 Ag panel , IA, upper respi rator y speci men Has patient been hospitalized due to COVID? No Not Available In-Off ice Order Internal Use Only DO Not Attach Compendium DO Not Attach Compendium, Do Not Delete/merge, [id number] 06/13/2022 17:17:23 06/13/2006/13/2022 rapid influ amrita virus A + B and SARS CoV + SARS CoV 2 Ag panel , IA, upper respi rator y speci men Has patient been in ICU due to COVID? No Not Available In-Off ice Order Internal Use Only DO Not Attach Compendium DO Not Attach Compendium, Do Not Delete/merge, [id number] 06/13/2022 17:17:23 06/13/20 22 06/13/2022 rapid influ amrita virus A + B and SARS CoV + SARS CoV 2 Ag panel , IA, upper respi rator y speci men Is patient resident in congregate care setting? No Not Available In-Off ice Order Internal Use Only DO Not Attach Compendium DO Not Attach Compendium, Do Not Delete/merge, [id number] 06/13/2022 17:17:23 07/30/20 22 07/30/2022 TROPI HIGH SENSI TIVIT Y tropi high sensitivity 8 NG/L <76 99th perce ntile Femal e: <51 ng/L Male: <76 ng/L Per the 4th unive rsal defin ition of Myoca rdial infar ction (CO), CO is defin ed as the prese nce of acute myoca rdial injur y (i.e. , detec tion of a rise and/o r fall of tropo era value s with at least 1 tropo era > 99th perce ntile Upper Refer ence Limit ) in the setti ng of clini sharmin evide nce of acute myoca rdial ische aury such as ische jakob sympt oms or new ische jakob EKG avila es. High- sensi tivit y tropo era resul ts shoul d be inter prete d in conju nctio n with other diagn ostic tests and clini sharmin infor matio n. Not Available [facility] (Lab) [address] [place], [address], 07/30/2022 14:21:59 07/30/20 22 07/30/2022 TROPI HIGH SENSI TIVIT Y performing lab: [facility] [address] [facility] [address] Not Available [facility] (Lab) [address] [place], [address], 07/30/2022 14:21:59 07/30/20 22 07/30/2022 INFL A B RAPID DETEC TION influenza type A Ag screen NEGATI VE negati ve Not Available [facility] (Lab) [address] [place] [address], [address], 07/30/2022 13:57:38 07/30/20 22 07/30/2022 INFL A B RAPID DETEC TION influenza type B Ag screen NEGATI VE negati ve Not Available [facility] (Lab) [address] [place] [address], [address], 07/30/2022 13:57:38 07/30/20 22 07/30/2022 INFL A B RAPID DETEC TION performing lab: [facility] [address] [facility] [address] Not Available [facility] (Lab) [address] [place] [address], [address], 07/30/2022 13:57:38 07/30/20 22 07/30/2022 TROPI HIGH SENSI TIVIT Y tropi high sensitivity 7 NG/L <76 99th perce ntile Femal e: <51 ng/L Male: <76 ng/L Per the 4th unive rsal defin ition of Myoca rdial infar ction (CO), CO is defin ed as the prese nce of acute myoca rdial injur y (i.e. , detec tion of a rise and/o r fall of tropo era value s with at least 1 tropo era > 99th perce ntile Upper Refer ence Limit ) in the setti ng of clini sharmin evide nce of acute myoca rdial ische aury such as ische jakob sympt oms or new ische jakob EKG [place] es. High- sensi tivit y tropo era resul ts shoul d be inter prete d in conju nctio n with other diagn ostic tests and clini sharmin infor matio n. Not Available [facility] (Lab) [address] [place] [address], [address], 07/30/2022 13:38:31 07/30/20 22 07/30/2022 TROPI HIGH SENSI TIVIT Y performing lab: [facility] [address] [facility] [address] Not Available [facility] (Lab) [address] [place], [address], 07/30/2022 13:38:31 07/30/20 22 07/30/2022 NT PROBN P nt probnp 56.00 pg/mL <1800 NT-pr oBNP age appro priat e cutof f value s for CHF AGE RESUL T INDIC ATION ----- ----- ----- ---- ----- ----- --- - ----- ----- ----- ----- ----- 301-4 50 pg/mL Indet yuliain ate for CHF ----- ----- ----- ---- ----- ----- --- - ----- ----- ----- ----- ----- 0-49 years >450 pg/mL Sugge stive of CHF ----- ----- ----- ---- ----- ----- --- - ----- ----- ----- ----- ----- 50-74 years >900 pg/mL Sugge stive of CHF ----- ----- ----- ---- ----- ----- --- - ----- ----- ----- ----- ----- > 75 years >1800 pg/mL Sugge stive of CHF Condi tions other than Acute CHF resul ting in incre ased NT-pr oBNP level s are: ----- ----- ----- ----- ----- ----- ----- ----- ----- ----- ----- ----- Acute Coron viktoriya Syndr ome Pulmo nary Embol ism Obstr uctiv e Pulmo nary Disea se Criti sharmin Jim ss Renal Failu re Not Available [facility] (Lab) [address] [place] [address], [address], 07/30/2022 13:32:28 07/30/20 22 07/30/2022 NT PROBN P performing lab: [facility] [address] [facility] [address] Not Available [facility] (Lab) [address] [place], [address], 07/30/2022 13:32:28 07/30/20 22 07/30/2022 CYNDY STERO L/HDL RATIO cholesterol/ HDL ratio 2.5 AN INDEP ENDEN T RISK FACTO R FOR CHD IN MALES : CHOL/ HDL RATIO OF 4.0 = 0.5X RISK CHOL/ HDL RATIO OF 6.5 = 1X RISK (AVER AGE) CHOL/ HDL RATIO OF 10.0 = 2X RISK Not Available [facility] (Lab) [address] [place] [address], [address], 07/30/2022 13:32:28 07/30/20 22 07/30/2022 CYNDY STERO L/HDL RATIO performing [facility] [address] [facility] [address] Not Available [facility] (Lab) [address] [place] [address], [address], 07/30/2022 13:32:28 07/30/20 22 07/30/2022 VLDL VLDL 19.4 mg/dL 7-35 normal Not Available [facility] (Lab) [address] [place] [address], [address], 07/30/2022 13:32:27 07/30/20 22 07/30/2022 VLDL performing lab: [facility] [address] [facility] [address] Not Available [facility] (Lab) [address] [place] [address], [address], 07/30/2022 13:32:27 07/30/20 22 07/30/2022 LDL LDL 60 mg/dL LDL VASQUEZ L RANGE S: <130 MG/DL RICKY ABLE 130-1 59 MG/DL BORDE RLINE HIGH > OR 160 MG/DL INCRE ASED Not Available [facility] (Lab) [address] [place] [address], [address], 07/30/2022 13:32:27 07/30/20 22 07/30/2022 LDL performing lab: [facility] [address] [facility] [address] Not Available [facility] (Lab) [address] [place] [address], [address], 07/30/2022 13:32:27 07/30/20 22 07/30/2022 HDL HDL 53 mg/dL 40-59 normal Not Available [facility] (Lab) [address] [place] [address], [address], 07/30/2022 13:32:26 07/30/20 22 07/30/2022 HDL performing lab: [facility] [address] [facility] [address] Not Available [facility] (Lab) [address] [place] [address], [address], 07/30/2022 13:32:26 07/30/20 22 07/30/2022 TRIGL YCERI DE triglyceride 97 mg/dL 30-200 normal Not Available [facility] (Lab) [address] [place] [address], [address], 07/30/2022 13:32:26 07/30/20 22 07/30/2022 TRIGL YCERI DE performing lab: [facility] [address] [facility] [address] Not Available [facility] (Lab) [address] [place] [address], [address], 07/30/2022 13:32:26 07/30/20 22 07/30/2022 CYNDY STERO L cholesterol 132 mg/dL < 200 normal Not Available [facility] (Lab) [address] [place] [address], [address], 07/30/2022 13:32:25 07/30/20 22 07/30/2022 CYNDY STERO L performing lab: [facility] [address] [facility] [address] Not Available [facility] (Lab) [address] [place] [address], [address], 07/30/2022 13:32:25 07/30/20 22 07/30/2022 COMPR EHENS MEHUL METAB OLIC PANEL glucose 101 mg/dL 70-110 Not Available [facility] (Lab) [address] [place] [address], [address], 07/30/2022 13:32:24 07/30/20 22 07/30/2022 COMPR EHENS MEHUL METAB OLIC PANEL urea nitrogen 14 mg/dL 5-25 Not Available [facility] (Lab) [address] [place] [address], [address], 07/30/2022 13:32:24 07/30/20 22 07/30/2022 COMPR EHENS MEHUL METAB OLIC PANEL creatinine 0.9 mg/dL 0.5-1. 4 Not Available [facility] (Lab) [address] [place] [address], [address], 07/30/2022 13:32:24 07/30/20 22 07/30/2022 COMPR EHENS MEHUL METAB OLIC PANEL est glomerular filtration rate > 60 mL/mi n >60 Not Available [facility] (Lab) [address] [place] [address], [address], 07/30/2022 13:32:24 07/30/20 22 07/30/2022 COMPR EHENS MEHUL METAB OLIC PANEL sodium 142 mmol/ L 133-14 5 Not Available [facility] (Lab) [address] [place] [address], [address], 07/30/2022 13:32:24 07/30/20 22 07/30/2022 COMPR EHENS MEHUL METAB OLIC PANEL potassium 3.9 mmol/ L 3.5-5. 3 Not Available [facility] (Lab) [address] [place] [address], [address], 07/30/2022 13:32:24 07/30/20 22 07/30/2022 COMPR EHENS MEHUL METAB OLIC PANEL chloride 104 mmol/ L 100-11 1 Not Available [facility] (Lab) [address] [place] [address], [address], 07/30/2022 13:32:24 07/30/20 22 07/30/2022 COMPR EHENS MEHUL METAB OLIC PANEL carbon dioxide 31 mmol/ L 21-32 Not Available [facility] (Lab) [address] [place] [address], [address], 07/30/2022 13:32:24 07/30/20 22 07/30/2022 COMPR EHENS MEHUL METAB OLIC PANEL anion gap 11 mmol/ L 10-20 Not Available [facility] (Lab) [address] [place] [address], [address], 07/30/2022 13:32:24 07/30/20 22 07/30/2022 COMPR EHENS MEHUL METAB OLIC PANEL BUN/creatini ne ratio 16 9.0-25 .0 Not Available [facility] (Lab) [address] [place] [address], [address], 07/30/2022 13:32:24 07/30/20 22 07/30/2022 COMPR EHENS MEHUL METAB OLIC PANEL calcium 8.4 mg/dL 8.7-10 .5 low Not Available [facility] (Lab) [address] [place] [address], [address], 07/30/2022 13:32:24 07/30/20 22 07/30/2022 COMPR EHENS MEHUL METAB OLIC PANEL albumin/glob ulin ratio 1.0 0.8-2. 0 Not Available [facility] (Lab) [address] [place] [address], [address], 07/30/2022 13:32:24 07/30/20 22 07/30/2022 COMPR EHENS MEHUL METAB OLIC PANEL total protein 6.9 g/dL 6.0-8. 0 Not Available [facility] (Lab) [address] [place] [address], [address], 07/30/2022 13:32:24 07/30/20 22 07/30/2022 COMPR EHENS MEHUL METAB OLIC PANEL albumin 3.4 g/dL 3.4-5. 0 Not Available [facility] (Lab) [address] [place] [address], [address], 07/30/2022 13:32:24 07/30/20 22 07/30/2022 COMPR EHENS MEHUL METAB OLIC PANEL aspartate aminotransfe rase 21 units /L 15-37 Not Available [facility] (Lab) [address] [place] [address], [address], 07/30/2022 13:32:24 07/30/20 22 07/30/2022 COMPR EHENS MEHUL METAB OLIC PANEL alanine aminotransfe rase 31 units /L 12-78 Not Available [facility] (Lab) [address] [place] [address], [address], 07/30/2022 13:32:24 07/30/20 22 07/30/2022 COMPR EHENS MEHUL METAB OLIC PANEL alkaline phosphatase 137 units /L 46-116 high Not Available [facility] (Lab) [address] [place] [address], [address], 07/30/2022 13:32:24 07/30/20 22 07/30/2022 COMPR EHENS MEHUL METAB OLIC PANEL total bilirubin 0.4 mg/dL 0-1.0 Not Available [facility] (Lab) [address] [place] [address], [address], 07/30/2022 13:32:24 07/30/20 22 07/30/2022 COMPR EHENS MEHUL METAB OLIC PANEL performing lab: [facility] [address] [facility] [address] Not Available [facility] (Lab) [address] [place] [address], [address], 07/30/2022 13:32:24 07/30/20 22 07/30/2022 PTT PTT 46 secon ds 25-38 high New metho dolog y, pleas e revdebbie w new refer ence range s. Thera peuti c hepar in range is 58-92 secon ds. Not Available [facility] (Lab) [address] [place] [address], [address], 07/30/2022 13:29:24 07/30/20 22 07/30/2022 PTT performing lab: [facility] [address] [facility] [address] Not Available [facility] (Lab) [address] [place], [address], 07/30/2022 13:29:24 07/30/20 22 07/30/2022 PROTH ROMBI N TIME protime 14.8 secon ds 10.0-1 2.8 high New metho dolog y, pleas e revie w new refer ence range s. Not Available [facility] (Lab) [address] [place], [address], 07/30/2022 13:29:23 07/30/20 22 07/30/2022 PROTH ROMBI N TIME internationa l normalized ratio 1.3 0.8-1. 1 high New metho dolog y, pleas e revie w new refer ence range s. Use INR for clini sharmin decis ion makin g Recom keren d Thera peuti c Range : INDIC ATION TARGE MARYELLEN INR RANGE On-x value (aort ic posit ion) 1.5-2 .0 Preve ntion and treat ment of VTE 2.0-3 .0 Atria l Fibri llati on 2.0-3 .0 Acute myoca rdial infar ction 2.0-3 .0 Valvu lar heart disea se 2.0-3 .0 Prost hetic tissu e heart valve s 2.5-3 .5 Recur rent Throm boemb olism 2.5-3 .5 Targe maryellen INR range of 2-3 is appro priat e for patie nts who have a mecha nical bilea flet in the aorti c posit ion, vasquez l cardi ac chamb er size, and no other risk facto rs for strok e. Co-ad minis trati on of argat roban and warfa rin produ kareen a combi sophia effec t on INR. Consu lt pharm acist or physi ronna to deter mine if warfa rin dose shoul d be held when INR is eleva maryellen and patie nt is recei ving silvio antunez . Not Available [facility] (Lab) [address] [place] [address], [address], 07/30/2022 13:29:23 07/30/20 22 07/30/2022 PROTH EVER N TIME performing lab: [facility] [address] [facility] [address] Not Available [facility] (Lab) [address] [place] [address], [address], 07/30/2022 13:29:23 07/30/20 22 07/30/2022 CBC WBC 5.4 10_3/ uL 4.0-10 .5 Not Available [facility] (Lab) [address] [place] [address], [address], 07/30/2022 13:13:09 07/30/20 22 07/30/2022 CBC RBC 4.51 10_6/ uL 4.63-6 .08 low Not Available [facility] (Lab) [address] [place] [address], [address], 07/30/2022 13:13:09 07/30/20 22 07/30/2022 CBC HGB 13.4 g/dL 13.7-1 7.5 low Not Available [facility] (Lab) [address] [place] [address], [address], 07/30/2022 13:13:09 07/30/20 22 07/30/2022 CBC hematocrit 40.9 % 40.1-5 1.0 Not Available [facility] (Lab) [address] [place] [address], [address], 07/30/2022 13:13:09 07/30/20 22 07/30/2022 CBC mean corpuscular volume 90.7 fL 79.0-9 2.2 Not Available [facility] (Lab) [address] [place] [address], [address], 07/30/2022 13:13:09 07/30/20 22 07/30/2022 CBC mean corpuscular hemoglobin 29.7 pg 28-34 Not Available [facility] (Lab) [address] [place] [address], [address], 07/30/2022 13:13:09 07/30/20 22 07/30/2022 CBC mean corpuscular HGB conc 32.8 g/dL 32.2-3 6.5 Not Available [facility] (Lab) [address] [place] [address], [address], 07/30/2022 13:13:09 07/30/20 22 07/30/2022 CBC RDW 13.8 % 11.6-1 4.4 Not Available [facility] (Lab) [address] [place] [address], [address], 07/30/2022 13:13:09 07/30/20 22 07/30/2022 CBC platelet count 192 10_3/ uL 150-40 0 Not Available [facility] (Lab) [address] [place] [address], [address], 07/30/2022 13:13:09 07/30/20 22 07/30/2022 CBC mean platelet volume 9.4 fL 9.4-12 .4 Not Available [facility] (Lab) [address] [place] [address], [address], 07/30/2022 13:13:09 07/30/20 22 07/30/2022 CBC performing lab: [facility] [address] [facility] [address] Not Available [facility] (Lab) [address] [place] [address], [address], 07/30/2022 13:13:09 07/30/20 22 07/30/2022 NOVEL CORON AVIRU S 2019 INHOU SE novel coronavirus 2019 inhouse Positi ve negati ve abnormal The ID NOW COVID -19 has been autho rized by the FDA under an emerg ency use autho rizat ion for use by autho rized labor cindy es and gloria nt care setti ngs. The test has been autho rized only for the detec tion of nucle ic acid from SARS- CoV-2 . Assay Metho dolog y:Iso therm al nucle ic acid ampli ficat ion techn ology Not Available [facility] (Lab) [address] [place], [address], 07/30/2022 13:11:09 07/30/20 22 07/30/2022 NOVEL CORON AVIRU S 2019 INHOU SE performing lab: [facility] [address] [facility] [address] Not Available [facility] (Lab) [address] [place], [address], 07/30/2022 13:11:09 08/08/20 22 08/08/2022 rapid influ amrita virus A + B and SARS CoV + SARS CoV 2 Ag panel , IA, upper respi rator y speci men INFLUENZA TYPE A NEGATI VE Not Available In-Office Order Internal Use Only DO Not Attach Compendium DO Not Attach Compendium, Do Not Delete/merge, [id number] 08/08/2022 11:33:30 08/08/20 22 08/08/2022 rapid influ amrita virus A + B and SARS CoV + SARS CoV 2 Ag panel , IA, upper respi rator y speci men INFLUENZA TYPE B NEGATI VE Not Available In-Office Order Internal Use Only DO Not Attach Compendium DO Not Attach Compendium, Do Not Delete/merge, 08/08/2022 11:33:30 08/08/20 22 08/08/2022 rapid influ amrita virus A + B and SARS CoV + SARS CoV 2 Ag panel , IA, upper respi rator y speci men Rapid SARS COV, ANTIGEN NEGATI VE Not Available In-Office Order Internal Use Only DO Not Attach Compendium DO Not Attach Compendium, Do Not Delete/merge, [id number] 08/08/2022 11:33:30 08/08/20 22 08/08/2022 rapid influ amrita virus A + B and SARS CoV + SARS CoV 2 Ag panel , IA, upper respi rator y speci men INTERNAL CONTROL VALID Not Available In-Off ice Order Internal Use Only DO Not Attach Compendium DO Not Attach Compendium, Do Not Delete/merge, [id number] 08/08/2022 11:33:30 08/08/20 22 08/08/2022 rapid influ amrita virus A + B and SARS CoV + SARS CoV 2 Ag panel , IA, upper respi rator y speci men Is this patient's first COVID test? No Not Available In-Off ice Order Internal Use Only DO Not Attach Compendium DO Not Attach Compendium, Do Not Delete/merge, [id number] 08/08/2022 11:33:30 08/08/20 22 08/08/2022 rapid influ amrita virus A + B and SARS CoV + SARS CoV 2 Ag panel , IA, upper respi rator y speci men Is patient employed in healthcare? No Not Available In-O ffice Order Internal Use Only DO Not Attach Compendium DO Not Attach Compendium, Do Not Delete/merge, [id number] 08/08/2022 11:33:30 08/08/20 22 08/08/2022 rapid influ amrita virus A + B and SARS CoV + SARS CoV 2 Ag panel , IA, upper respi rator y speci men Is patient symptomatic of COVID-19? No Not Available In- Office Order Internal Use Only DO Not Attach Compendium DO Not Attach Compendium, Do Not Delete/merge, [id number] 08/08/2022 11:33:30 02/16/20 22 02/15/2022 CT, cervi sharmin spine , w/o contr ast [facility] Name: DO ALBIN AGUIAR S [address] Phys: [place] [address] : 1940 Age: 81 Sex: M Acct: [id number] Loc: [facility] PHONE #: Exam Date: 2021 Status : PRE ER FAX #: [phone] Radiol ogy No: [id number] Unit No: [id number] EXAMS: [id number] CT C-SPIN E W/O CONTRA ST INDICA TION: Neck pain TINGLI NG AND SEVERE PAIN IN BACK OF NECK EXAMIN ATION: CT CERVIC AL SPINE - CT Spine Cervic al W/O Contra st Inject ion TECHNI QUE: Annamaria lund acquir ed images were obtain ed of the cervic al spine. 2D reform atted images were review ed. A radiat ion dose optimi zation techni que was used for this scan. IV Contra st dosage and agent: None. COMPAR ERIKA: None. __ FINDIN GS: High resolu tion CT scan of cervic al spine reveal s no fractu re or disloc ation. 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 Mild degene rative change s are seen throug hout the cervic al spine Facet joints and narrow ing of joint spaces from C3 throug h C7. IMPRES KULWANT: No acute fractu re seen. Degene rative change s at C1-C2 and from C3 throug h C7. Fusion of the bodies of C6 and C7 are presen t. Above findin gs are well seen on sagitt al and worley l recons tructi ons Electr onical ly Signed by Sander Darby MD on 2021 at 1543 Report ed and signed by: Sander Darby MD PAGE 1 Signed Report (JANET NUED) [facility] Name: DO ALBIN AGUIAR S [address] [place]: [place] [address] : 1940 Age: 81 Sex: M Acct: [id number] Loc: E.[facility]CC PHONE #: [phone] Exam Date: 2021 Status : PRE ER FAX #: Radiol ogy No: [id number] Unit No: [id number] EXAMS: [id number] CT C-SPIN E W/O CONTRA ST CC: Dictat ed Date/T michael: 2021 (1543) Techno logist : WILL MCGUIR E RT(R)( CT) Transc ribed Date/T michael: 2021 (1543) Transc riptio nist: RAD.VR Electr onic Signat ure Date/T michael: 2021 (1543) Printe d Date/T michael: 2021 (9184) BATCH NO: N/A PAGE 2 Signed Report [address] ([facility]) [address] [place] [address], [place], [address], 02/21/2022 10:18:21 03/05/20 22 03/05/2022 US, groin INDICA TION: K40.90 Unil inguin al hernia , w/o obst or gangr, not spcf as recur. TECHNI QUE: US GROIN UNILAT ERAL. COMPAR ERIKA: None FINDIN GS: No discer nible mass no discer nible lesion in the groin no other acute findin gs IMPRES KULWANT: No acute findin gs. Electr onical ly Signed By: Marily Arriaga James Sign Date: [id number] [facility] All Locations, [place], [address], 07/16/2024 19:33:29 04/04/20 22 04/04/2022 XR, ankle , 3 or more view INDICA TION: Male 81 years - M25.57 1 Pain in right ankle and joints of right foot. TECHNI QUE: ANKLE 3V (COMPL ETE) RIGHT. COMPAR ERIKA: None. FINDIN GS: There is no fractu re or disloc ation. The trabec ular lines are intact . There is no perios teal reacti on. The ankle mortis e is preser leatha. Calcif icatio ns are noted within the Achill es tendon . There are no radiop aque foreig n bodies . IMPRES KULAWNT: 1. There are calcif icatio ns within the Achill es tendon . This could repres ent tendin itis. Clinic al correl ation and if necess viktoriya an MRI of the RIGHT ankle is recomm ended. Electr onical ly Signed By: Álvaro candelaria D.O., Paul Sign Date: [id number] [facility] All Locations, [place], [address], 07/16/2024 19:34:45 04/06/2004/06/2022 - venou s duple x/DVT leg uni, RT [facility] Name: MARY GOSS DO ALBIN SALDAÑA S [address] Phys: [place] [address] : 1940 Age: 81 Sex: M Acct: [id number] Loc: E.ECC PHONE #: [phone] Exam Date: 2021 Status : REG ER FAX #: [phone] Radiol ogy No: [id number] Unit No: [id number] EXAMS: [id number] VENOUS DUPLEX /DVT LEG UNI, RT INDICA TION: dvt RIGHT LEG PAIN EXAMIN ATION: Right Lower extrem ity duplex venous ultras ound. TECHNI QUE: Routin e and color duplex imagin g includ ing spectr al analys is. COMPAR ERIKA: None. __ FINDIN GS: The deep venous system compre sses normal ly, augmen ts, is free of paralegal internship al echoes , and shows normal flow with Dopple r. Normal venous wavefo jose luis. No poplit eal cyst. IMPRES KULWANT: Negati ve. Electr onical ly Signed by LORA GALVAN MD on 2021 at 2159 Report ed and signed by: LORA GALVAN MD CC: Dictat ed Date/T michael: 2021 (2158) Techno logist : PRECIOUSEileen GILBERT (RDMS) (RVT) Transc ribed Date/T michael: 2021 (2158) Transc riptio nist: RAD.VR Electr onic Signat ure Date/T michael: 2021 (2158) Printe d Date/T michael: 2021 (2199) BATCH NO: N/A PAGE 1 Signed Report INTERFACE [facility] ([facility]) [address], [place], [address], 04/06/2022 22:01:06 06/27/20 22 06/27/2022 CT, brain , w/o contr ast No observ ation record ed. [place] [address] [place], [address], 07/08/2022 13:17:48 06/27/20 22 06/27/2022 XR, chest No observ ation record ed. [address] [place], [address], 07/08/2022 13:18:07 06/27/20 22 06/27/2022 XR, pelvi s No observ ation record ed. [address] [place], [address], 07/08/2022 13:18:34 06/27/20 22 06/27/2022 CT, face, w/o contr ast No observ ation record ed. [address] [place], [address], 07/08/2022 13:18:59 07/30/20 22 07/30/2022 - chest , luis manuel ble [facility] Name: DO ALBIN AGUIAR S [address] Phys: [place] [address] : 1940 Age: 81 Sex: M Acct: [id number] Loc: E.ECC PHONE #: Exam Date: 2021 Status : REG ER FAX #: Radiol ogy No: [id number] Unit No: [id number] EXAMS: [id number] CHEST, PORTAB LE INDICA TION: Chest Pain DIZZIN ESS EXAMIN ATION/ TECHNI QUE: X-RAY - XR Chest 1 View COMPAR ERIKA: None. __ FINDIN GS: LINES/ DEVICE S: None. LUNGS: No consol idatio n, edema or effusi on. No pneumo thorax . Bilate ral perihi lar and suprah ilar granul omas. MEDIAS TINUM AND CARDIO VASCUL AR STRUCT URES: Cardia c silhou ette not enlarg ed. Centra l airway s and medias tinal contou r are unrema rkable . BONES AND SOFT TISSUE S: Unrema rkable . IMPRES KULWANT: No radiog raphic eviden ce of acute cardio pulmon viktoriya diseas e. Old granul omatou s diseas e. Electr onical ly Signed by ASHISH FAULKNER MD on 2021 at 1318 Report ed and signed by: ASHISH FAULKNER MD CC: Dictat ed Date/T michael: 2021 (1318) Techno logist : YVETTE SWesley RWesleyTWesley(R )(M); Radiol ology Studen t- Nafisa Transc ribed Date/T michael: 2021 (1318) Transc riptio nist: RAD.VR Electr onic Signat ure Date/T michael: 2021 (1318) Printe d Date/T michael: 2021 (1319) BATCH NO: N/A PAGE 1 Signed Report INTERFACE [facility] (Lab) [address] [place] [address], [place], [address], 07/30/2022 13:20:18 08/08/20 22 07/14/2022 CT, lumba r spine , w/o contr ast No observ ation record ed. BARCODE Not Available 2021 16:06:40 Result Notes Documentation Provider Name and Address Organization Details Recorded Time Xr, Ankle, 3 Or More View : INDICATION: Male 81 years - M25.571 Pain in right ankle and joints of right foot. TECHNIQUE: ANKLE 3V (COMPLETE) RIGHT. COMPARISON: None. FINDINGS: There is no fracture or dislocation. The trabecular lines are intact. There is no periosteal reaction. The ankle mortise is preserved. Calcifications are noted within the Achilles tendon. There are no radiopaque foreign bodies. IMPRESSION: 1. There are calcifications within the Achilles tendon. This could represent tendinitis. Clinical correlation and if necessary an MRI of the RIGHT ankle is recommended. Electronically Signed By: Sy Ordonez Paul Sign Date: 04-APR-22 Not Available [facility] 07/16/2024 20:08:20 Problems Name Problem SNOMED Code Status Onset Date Resolution Date Notes Provider Name and Address Organization Details Recorded Time Gastroes ophageal reflux disease 583020233 Active Toya graham, [facility] Physician [facility], [facility] 2 13:14:22 Hypercho lesterol emia 58048322 Completed 07/08/2017 Doug Maya DO [address], [place], [address], [facility], [facility] 7 10:05:18 Malignan t neoplasm of skin 770790547 Completed 04/12/2015 FELICIA Harrell [address], [place], [address], [facility], [facility] 6 10:06:15 Gout 23444833 Active Toya graham [facility], [facility] 2 13:14:22 Anxiety 68166685 Active Toya graham [facility] Physician [facility], [facility] 2 13:14:22 Benign essentia l hyperten kulwant 4622982 Active Toya graham, [facility], [facility] 2 13:14:22 Myocardi al infarcti on 94022516 Completed 07/15/20192012 Doug Maya DO [address], [place], [address], [facility] Physician [facility], [facility] 9 09:26:49 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 Completed 04/12/2015 Doug Maya DO [address], [place], [address], [facility], [facility] 9 09:28:37 Pure hypercho lesterol emia 269374307 Completed 07/08/2017 Doug Maya DO [address], [place], [address], [facility], [facility] 7 10:05:12 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 31811056 Completed 08/09/2021 KIM Mercado [address], [place], [address], [facility], [facility] 1 08:32:06 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 63473448420 07 Active [place] 2012 Toya graham, [facility], [facility] 2 13:14:22 Low back pain 135864022 Completed 07/15/2019 Doug Maya DO [address], [place], [address], [facility], [facility] 9 09:26:42 Peripher al vascular disease 057297479 Active arterial doppler 04/12/15 [facility] 2 13:14:22 Chronic obstruct mehul pulmonar y disease 03088759 [facility] 2 13:14:22 Pulmonar y emphysem a 47717512 [facility] 2 13:14:22 Urinary tract infectio us disease 73424050 Completed 07/13/2018 Doug Maya DO [address], [place], [address], [facility], [facility] 8 10:01:02 Bacterem ia 5673092 Completed 07/08/[address], [place], [address], [facility], [facility] 7 10:05:34 Pneumoni a caused by Klebsiel la pneumoni ae 92956717 Completed 07/13/[address], [place], [address], [facility], [facility] 8 10:00:58 Herpetic gingivos tomatiti s 93207138 Completed 07/13/[address], [place], [address], [facility], [facility] 8 10:01:06 Prostati tis 8961509 Completed 07/15/[address], [place], [address], [facility], [facility] 9 09:28:32 Degenera tion of lumbar interver tebral disc 67194672 [facility] 2 13:14:21 Contusio n of hand 1943807 Completed 08/09/[address], [place], [address], [facility], [facility] 1 08:30:54 Cervical disc disorder 367633200 Completed 08/09/[address], [place], [address], [facility], [facility] 1 08:30:59 Torticol lis 28589211 Completed 08/09/2021 KIM Mercado [address], [place], [address], [facility] Physician [facility], [facility] 1 08:32:09 Low blood pressure 38696150 Completed 08/09/2021 KIM Mercado [address], [place], [address], [facility] Physician [facility], [facility] 08:31:44 Lumbosac ral strain 356944216 Completed 08/09/2021 KIM Mercado [address], [place], [address], [facility] Physician [facility], [facility] 08:31:50 Abdomina l pain 56901247 Completed 08/09/2021 KIM Mercado [address], [place], [address], [facility] Physician [facility], [facility] 08:25:00 Lighthea dedness 502113978 Completed 08/09/2021 KIM Mercado [address], [place], [address], [facility] Physician [facility], [facility] 08:31:39 Atrial fibrilla tion 02240624 Active 2014 Toya graham, [facility], [facility] 2 13:14:22 Essentia l hyperten kulwant 43286262 Active 2015 Toya graham, [facility] Physician [facility], [facility] 2 13:14:22 Diet educatio n Completed 201510/19/2015 Toya graham [facility] Physician [facility], [facility] 2 13:14:22 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 2015 Toya graham [facility], [facility] 2 13:14:22 Anticipa tory guidance Completed 201510/19/2015 Toya graham [place] [facility], [facility] 2 13:14:22 Syncope 335506901 Active 2015 [facility], [facility], [facility] 2 13:14:22 Lighthea dedness 273795326 Active 2015 Toya graham, [facility], [facility] 2 13:14:22 Paroxysm al atrial fibrilla tion 481404158 Active 2015 Toya graham, [facility], [facility] 2 13:14:21 Palpitat ions 21431198 Active 2015 Toya graham, [facility], [facility] 2 13:14:22 Intermit tent claudica tion 39537130 Active 2015 Toya graham, [facility], [facility] 2 13:14:22 Inguinal hernia 270651063 Completed 201508/09/2021 KIM Mercado [address], [place], [address], [facility], [facility] 1 08:31:35 Hypercoa gulabili ty state 27792592 Active 2016 Toya graham, [facility], [facility] 2 13:14:22 Angina pectoris 488922016 Completed 201608/09/2021 KIM Mercado [address], [place], [address], [facility], [facility] 1 08:30:42 Atherosc lerosis of aorta 36360863 Active 2016 ct chest 12/20/16 Toya [facility]ham [facility], [facility] 2 13:14:22 Anemia of chronic disease 876050574 Active 2016 Toya graham [facility], [facility] 2 13:14:22 Chest pain 30508309 Completed 201609/19/2016 Toya graham, [facility], [facility] 2 13:14:21 Decrease d breath sounds 40859269 Active 2016 Toya graham, [facility], [facility] 2 13:14:22 Hyperlip idemia 40669271 Completed 201808/09/2021 KIM Mercado [address], [place], [address], [facility], [facility] 1 08:31:23 Coronary arterios clerosis 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 201807/15/2019 CO 2012 Doug Maya DO [address], [place], [address], [facility], [facility] 9 09:28:37 Coronary arterios clerosis 60806073 Completed 201807/15/2019 CO 2012 Doug Maya DO [address], [place], [address], [facility], [facility] 9 09:28:37 Recurren t major depressi ve episodes 703888528 Completed 201908/09/2021 KIM Mercado [address], [place], [address], [facility], [facility] 1 08:32:03 Angina co-occur rent and due to coronary arterios clerosis 60392825880 064366 Completed 202008/09/2021 KIM Mercado [address], [place], [address], [facility], [facility] 1 08:31:10 Dyslipid emia 681417117 Active 2020 Toya graham, [facility], [facility] 2 13:14:21 Ulcer 559219996 Active 2021 FELICIA Keller [address], [place], [address], [facility] Physician [facility], [facility] 12:11:38 Glaucoma 43054828 Active 2021 FELICIA Keller [address], [place], [address], [facility], [facility] 12:11:45 Abdomina l aortic aneurysm 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 Procedures Surgical History Date Name Laterality Status Provider Name and Address Organization Details Recorded Time 022 Quality TCM Medication Reconciliation completed [facility], [facility] 08/08/2022 11:01:09 022 Suture/Staple removal (PCP, WIC, Spec) completed FELICIA Keller [address], [place], [address], [facility] Physician [facility], [facility] 07/04/2022 20:03:48 Quality Functional Assessment completed [facility], [facility] 08/09/2021 07:42:40 Quality Medication Reviewed and Updated completed [facility], [facility] 08/09/2021 07:42:40 021 Medicare AWV Questionnaire completed KIM Mercado [address], [place], [address], [facility] Physician [facility], [facility] 08/09/2021 08:39:49 021 Quality Fall Risk Assessment Low Risk completed [facility], [facility] 08/09/2021 07:42:40 021 Quality BMI with follow up completed [facility], [facility] 08/09/2021 07:42:40 021 Quality Advanced Care Planning completed [facility], [facility] 08/09/2021 07:42:40 Quality Incontinence Screening completed Consuelo Agudelo [facility], [facility] 08/09/2021 07:42:40 Quality TCM Medication Reconciliation completed Aminata Lee [facility] 12/12/2020 13:52:02 Quality Functional Assessment completed Inge Starks [facility], [facility] 07/18/2020 09:40:58 Quality Medication Reviewed and Updated completed Bergoo Tereza [facility] 07/18/2020 09:40:58 Medicare AWV Questionnaire completed DO Chelsey [address], [place], [address], [facility], [facility] 07/18/2020 10:07:25 Quality Fall Risk Assessment Low Risk completed Bergoo Tereza [facility], [facility] 07/18/2020 09:40:58 Quality BMI with follow up completed Ingehilton Starks [facility] 07/18/2020 09:40:58 Quality [facility] Planning [facility] 07/18/2020 09:40:58 020 Quality Incontinence Screening completed Ingehilton Starks [facility] 07/18/2020 09:40:58 Hernia repair completed Daxa Virk [facility] 09/13/2019 14:35:38 Quality Functional Assessment completed Linda Stephens [facility] 07/15/2019 09:01:42 Quality Medication Reviewed and Updated completed Linda Stephens [facility] 07/15/2019 09:01:42 019 Medicare AWV Questionnaire completed DO Chelsey [address], [place], [address], [facility], [facility] 07/15/2019 09:34:14 019 Quality Fall Risk Assessment Low Risk completed Linda Stephens [facility], [facility] 07/15/2019 09:01:42 019 Quality BMI with follow up completed Lindajeet Stephens [facility], [facility] 07/15/2019 09:01:42 019 Quality Advanced Care Planning completed Linda Stephens [facility], [facility] 07/15/2019 09:01:42 019 Quality Incontinence Screening completed Lindamillie Stephens [facility], [facility] 07/15/2019 09:01:42 019 Cerumen Disimpaction Lavage Only (PCP, [place], Spec) completed Tiffany Hudson [facility] 04/12/2019 16:23:17 019 Cerumen Disimpaction Using instrumentation (PCP, WIC, Spec) completed DO Chelsey [address], [place], [address], [facility], [facility] 04/12/2019 11:53:23 019 Trigger Point Injection completed DO Chelsey [address], [place], [address], [facility], [facility] 02/24/2019 13:54:33 019 Nebulizer treatment completed DO [address], [place], [address], [facility], [facility] 02/24/2019 14:19:46 019 EGD-Upper Endoscopy completed Susan Beal [facility], [facility] 09/16/2018 10:40:18 018 Quality Pain Screening No Pain completed DO [address], [place], [address], [facility], [facility] 07/13/2018 09:58:22 018 Quality Functional Assessment completed Susan Beal [facility], [facility] 07/13/2018 09:45:43 018 Quality Medication Reviewed and Updated completed Susan [facility], [facility] 07/13/2018 09:45:43 018 Medicare AWV Questionnaire completed Doug Maya DO [address], [place], [address], [facility], [facility] 07/13/2018 09:58:22 018 Quality Tobacco Non- User completed Doug Maya DO [address], [place], [address], [facility], [facility] 07/13/2018 09:58:22 018 Quality (DM or HTN) BP Diastolic 80-89 completed Doug Maya DO [address], [place], [address], [facility], [facility] 07/13/2018 09:58:22 018 Quality Fall Risk Assessment Low Risk completed Susan [facility] 07/13/2018 09:45:43 018 Quality BMI with follow up completed Susan Beal [facility] 07/13/2018 09:45:43 018 Quality Advanced Care Planning completed Susan [facility] 07/13/2018 09:45:43 018 Quality Incontinence Screening completed [facility] 07/13/2018 09:45:43 018 Quality TCM Medication Reconciliation completed Linda Stephens [facility] 03/27/2018 09:43:57 018 TCM Initial completed Jamee Ernandez [facility], [facility] 03/23/2018 15:08:49 018 ENS Follow up completed Barbie Lunsford [facility], [facility] 03/11/2018 08:23:41 018 Nebulizer treatment completed FELICIA Harrell [address], [place], [address], [facility], [facility] 10/07/2017 11:54:00 017 Quality Pain Screening No Pain completed DO Chelsey [address], [place], [address], [facility], [facility] 07/08/2017 10:14:35 017 Quality Functional Assessment completed [facility] 07/08/2017 10:02:13 017 Quality Medication Reviewed and Updated completed Lindamillie Stephens [facility] 07/08/2017 10:02:13 017 Medicare AWV Questionnaire completed Doug Maya DO [address], [place], [address], [facility], [facility] 07/08/2017 10:16:02 017 Quality Tobacco Non- User completed DO Marcin [address], [place], [address], [facility], [facility] 07/08/2017 10:14:35 017 Quality (DM or HTN) BP Diastolic 80-89 completed DO Marcin [address], [place], [address], [facility], [facility] 07/08/2017 10:14:35 017 Quality Fall Risk Assessment Low Risk completed Linda Stephens [facility] 07/08/2017 10:02:13 017 Quality BMI with follow up completed Linda Stephens [facility] 07/08/2017 10:02:13 017 Quality Advanced Care Planning completed Linda Stephens [facility] 07/08/2017 10:02:13 017 Quality Incontinence Screening completed Lindajeet Stephens [facility] 07/08/2017 10:02:13 017 LDCT for lung cancer screening counseling completed DO [address], [place], [address], [facility], [facility] 07/08/2017 10:15:26 017 Quality TCM Medication Reconciliation completed Linda Stephens [facility] Physician [facility], [facility] 06/10/2017 13:18:20 017 TCM Initial completed Neena Murguia [facility], [facility] 06/06/2017 11:11:02 017 Quality TCM Medication Reconciliation completed Gely Santiago [facility] Phys[facility], [facility] 02/28/2017 12:54:27 017 TCM Initial completed Sophy Dos Santos [facility] Physician [facility], [facility] 02/19/2017 16:32:02 017 TCM Initial completed Sapphire Murillo [facility], [facility] 02/12/2017 13:11:32 016 Other completed Radha Rhodes [facility], [facility] 09/06/2016 14:52:05 016 Quality TCM Medication Reconciliation completed Chikis Mathews [facility], [facility] 08/16/2016 14:33:47 016 TCM Initial completed Neena Murguia [facility], [facility] 08/14/2016 16:24:27 016 Quality Pain Screening No Pain completed [facility], [facility] 04/16/2016 08:11:04 016 Quality Functional Assessment completed [facility] Mack[facility] Physician [facility], [facility] 04/16/2016 08:11:04 016 Quality Medication Reviewed and Updated completed [facility], [facility] 04/16/2016 08:11:04 016 Quality (DM or HTN) BP Systolic > 140 completed Doug Maya DO [address], [place], [address], [facility], [facility] 04/16/2016 08:35:05 016 Quality (DM or HTN) BP Diastolic < 80 completed Rivka Mann [facility], [facility] 04/16/2016 08:11:04 08/23/2 016 Medicare AWV Questionnaire completed DO [address], [place], [address], [facility] Physician [facility], [facility] 04/16/2016 08:39:17 016 Quality Tobacco Non- User completed [facility], [facility] 04/16/2016 08:11:05 016 Quality (DM or HTN) BP Diastolic 80-[address], [place], [address], [facility] Physician [facility], [facility] 04/16/2016 08:35:05 016 Quality (DM or HTN ) BP Systolic < [address] [facility], [facility] 04/16/2016 08:11:05 016 Quality Fall Risk Assessment Low Risk completed [facility], [facility] 04/16/2016 08:11:05 016 Quality BMI with follow up completed [facility] 04/16/2016 08:11:05 016 Quality Advanced Care Planning completed [facility] 04/16/2016 08:11:05 016 Quality Incontinence Screening completed [facility] 04/16/2016 08:11:05 016 LDCT for lung cancer screening counseling completed DO [address], [place], [address], [facility], [facility] 04/16/2016 08:37:22 016 Skin: Destruction of Malignant lesions completed DO [address], [place], [address], [facility] Physician [facility], [facility] 01/12/2016 11:45:49 016 TCM Initial completed Neena Murguia [facility], [facility] 10/24/2015 13:04:35 016 TCM Initial completed Sophy Dos Santos [facility], [facility] 10/13/2015 15:29:36 016 Skin: Shave Biopsy completed DO Chelsey [address], [place], [address], [facility], [facility] 09/18/2015 20:09:21 016 Stent Placement, Other completed Rivka Mann [facility], [facility] 01/12/2016 11:36:24 016 Stent Placement, Other completed Rivka Mann [facility], [facility] 01/12/2016 11:36:24 016 Other completed Chikis Mathews [facility], [facility] 08/16/2016 14:40:29 015 Quality Pain Screening No Pain completed Susannachica Dominguez [facility], [facility] 04/12/2015 08:26:19 015 Quality Functional Assessment completed Susannachica Dominguez [facility] 04/12/2015 08:26:19 015 Quality Medication Reviewed and Updated completed Susannachica Dominguez [facility] 04/12/2015 08:26:19 015 Quality (DM or HTN) BP Systolic > 140 completed DO [address], [place], [address], [facility], [facility] 04/12/2015 08:53:14 015 Medicare AWV Questionnaire completed DO [address], [place], [address], [facility], [facility] 04/12/2015 08:53:14 015 Quality Tobacco Non- User completed Susanna Dominguez [facility] 04/12/2015 08:26:19 015 Quality (DM or HTN) BP Diastolic 80-89 completed DO [address], [place], [address], [facility], [facility] 04/12/2015 08:53:14 015 Quality Fall Risk Assessment Low Risk completed Susannachica Dominguez [facility], [facility] 04/12/2015 08:26:19 015 Quality BMI with follow up completed Susannachica Dominguez [facility] 04/12/2015 08:26:20 015 Quality Advanced Care Planning completed Susannachica Dominguez [facility], [facility] 04/12/2015 08:26:20 015 Quality Incontinence Screening completed Susannachica Dominguez [facility] 04/12/2015 08:26:20 015 Skin: Shave Biopsy completed DO [address]cin [address], [place], [address], [facility], [facility] 03/17/2015 13:30:50 015 TCM Initial completed Sophy Dos Santos [facility], [facility] 03/07/2015 13:53:14 015 Colonoscopy completed Xochitl Mcdonald [facility], [facility] 03/09/2015 13:46:35 015 Other completed Xochitl Mcdonald [facility], [facility] 03/09/2015 13:46:35 015 Cardiac Catherization completed FELICIA Harrell [address], [place], [address], [facility], [facility] 10/26/2015 22:49:07 015 Skin: Shave Biopsy completed DO Marcin [address], [place], [address], [facility], [facility] 12/01/2014 15:52:52 014 Skin: Destruction of Benign/Premalignan t lesions completed DO Marcin [address], [place], [address], [facility], [facility] 08/11/2014 11:49:50 014 Quality Pain Screening No Pain completed DO Marcin [address], [place], [address], [facility] Physician [facility], [facility] 04/04/2014 16:21:17 014 Quality Functional Assessment completed DO Marcin [address], [place], [address], [facility], [facility] 04/04/2014 16:21:17 014 Quality Medication Reviewed and Updated completed DO Marcin [address], [place], [address], [facility], [facility] 04/04/2014 16:21:17 014 Quality (DM or HTN) BP Diastolic < 80 completed DO Marcin [address], [place], [address], [facility], [facility] 04/04/2014 16:21:17 014 Medicare AWV Questionnaire completed DO Marcin Rose [address], [place], [address], [facility], [facility] 04/04/2014 16:21:18 014 Quality Tobacco Non- User completed DO Marcin Rose [address], [place], [address], [facility], [facility] 04/04/2014 16:21:18 014 Quality (DM or HTN ) BP Systolic < 130 completed DO Marcin [address], [place], [address], [facility], [facility] 04/04/2014 16:21:18 014 Quality Fall Risk Assessment Low Risk completed DO [address], [place], [address], [facility], [facility] 04/04/2014 16:21:18 014 Quality BMI with follow up completed DO Marcin [address], [place], [address], [facility], [facility] 04/04/2014 16:21:18 014 Quality Advanced Care Planning completed Doug Maya DO [address], [place], [address], [facility], [facility] 04/04/2014 16:21:18 014 Skin: Shave Biopsy completed Doug Maya DO [address], [place], [address], [facility], [facility] 10/18/2013 11:33:11 005 Colonoscopy completed Doug Maya DO [address], [place], [address], [facility], [facility] 04/04/2014 16:28:13 Appendectomy completed Jannet Reese [facility], [facility] 08/30/2013 16:11:54 Cataract excision completed Rosaura Ferguson [facility], [facility] 06/07/2019 12:48:17 Back surgery completed FELICIA Harrell [address], [place], [address], [facility], [facility] 08/30/2013 16:46:18 Imaging Results None recorded. Procedure Notes None recorded. Medical Equipment None Reported. Allergies Allergen ID Allergen Name Allergen Category Reaction Reaction Severity Criticality Documentation Date Start Date Code Code System Note Provider Name and Address Organization Details Recorded Time 937058 codeine medicatio n anaphylax is severe Not available 08/30/2013 2670 RxNorm heart stopp ed Jannet Reese [facility], [facility] 15:50:06 Medications Name Sig Start Date Stop Date Status Note LastModified by Organization Details LastModified Time cyclobenz aprine 10 mg tablet Take by oral route as needed. 04/04 completed Not Available Not Available Not Available latanopro st 0.005 % eye drops 07/18 completed Not Available Not Available Not Available cilostazo l 100 mg tablet twice a day by oral route. 09/19 completed Not Available Not Available Not Available prednison e 10 mg tablet 30 mg po q am for 3 days, then 20 mg po q am for 3 days then 10 mg po q am for 3 days. 07/04 completed Not Available Not Available Not Available doxycycli ne hyclate 100 mg capsule Take 1 capsule twice a day by oral route. 07/04 completed Not Available Not Available Not Available atorvasta tin 20 mg tablet TAKE 1 TABLET EVERY DAY 2022 active Not Available Not Available Not Avai lable ipratropi um 0.5 mg-albute rol 3 mg (2.5 mg base)/3 mL nebulizat ion soln USE 1 VIAL IN NEBULIZE R FOUR TIMES PER DAY 2021 active Not Available Not Available Not Avai lable Depo-Medr ol 40 mg/mL suspensio n for injection Take 1 mL every day by injectio n route. 2021 active Not Available Not Available Not Avai lable azithromy florecita 250 mg tablet TAKE 2 TABLETS (500 MG) BY ORAL ROUTE ONCE DAILY FOR 1 DAY THEN 1 TABLET (250 MG) BY ORAL ROUTE ONCE DAILY FOR 4 DAYS 12/26 completed Not Available Not Available Not Available ibuprofen 800 mg tablet Take 1 tablet 3 times a day by oral route for 30 days. active 04/12/15 taking prn Not Available Not Available Not Available tizanidin e 4 mg tablet Take 1 tablet 3 times a day by oral route as needed. 02/24 completed Not Available Not Available Not Available benzonata te 200 mg capsule Take 1 capsule 3 times a day by oral route as needed. 07/04 completed Not Available Not Available Not Available valacyclo vir 1 gram tablet twice a day by oral route. 11/01 completed Not Available Not Available Not Available hydrocodo ne 5 mg-acetam inophen 325 mg tablet Take 1 tablet every 4 hours by oral route as needed for 3 days. 07/18 completed Not Available Not Available Not Available sotalol 80 mg tablet TAKE 1 TABLET TWICE DAILY active Not Available Not Available No t Available sucralfat e 1 gram tablet 11/16 completed Not Available Not Available Not Available lisinopri l 20 mg tablet twice a day by oral route. 11/01 completed Not Available Not Available Not Available Medrol (Jacob) 4 mg tablets in a dose pack Use as directed 07/18 completed Not Available Not Available Not Available prednison e 20 mg tablet Take 1 tablet every day by oral route. 04/04 completed Not Available Not Available Not Available isosorbid e mononitra te ER 30 mg tablet,ex tended release 24 hr TAKE 1 TABLET EVERY DAY 07/13 completed Not Available Not Available Not Available amlodipin e 2.5 mg tablet amLODIPi ne Besylate 2.5 MG Oral Tablet QTY: 0 tablet Days: 0 Refills: 0 Written: 11/02/15 Patient Instruct ions: 09/19 completed Not Available Not Available Not Available clopidogr el 75 mg tablet 1 tab PO QD 03/27 completed Not Available Not Available Not Available amlodipin e 5 mg tablet TAKE 1 TABLET EVERY DAY DIRECTED active Not Available Not Available No t Available ciproflox acin 500 mg tablet 08/16 completed Not Available Not Available Not Available sulfameth oxazole 800 mg-trimet hoprim 160 mg tablet 03/27 completed Not Available Not Available Not Available hydrocodo ne 10 mg-acetam inophen 325 mg tablet active Not Available Not Available Not Available aspirin 81 mg tablet,de layed release Take 1 tablet every day by oral route. active Not Available Not Available No t Available tramadol 50 mg tablet Take 1 tablet every 6 hours by oral route. 07/18 completed Not Available Not Available Not Available sildenafi l 100 mg tablet Take 1 tablet every day by oral route. 07/18 completed Not Available Not Available Not Available simvastat in 40 mg tablet Take 1 tablet every day by oral route for 90 days. 2013 active Not Available Not Available Not Avai lable Depo-Medr ol 80 mg/mL suspensio n for injection Take 1 mL every day by injectio n route. 02/24 completed Pt tolerate d well and left without incident - R. Caravell a [employer] Not Available Not Available Not Available prednison e 10 mg tablets in a dose pack as directed 02/24 completed Not Available Not Available Not Available oxycodone -acetamin ophen 5 mg-325 mg tablet active Not Available Not Available Not Available ceftriaxo ne 1 gram solution for injection Take 1 g by injectio n route. 12/26 completed Not Available Not Available Not Available citalopra m 20 mg tablet Take 1 tablet every day by oral route. 08/01 completed Not Available Not Available Not Available famotidin e 20 mg tablet Take 1 tablet twice a day by oral route for 30 days. 02/24 completed Not Available Not Available Not Available lorazepam 0.5 mg tablet Take 1 tablet twice a day by oral route as needed. 2021 active Not Available Not Available Not Avai lable methocarb andreas 750 mg tablet Take 1 tablet 3 times a day by oral route as needed for 10 days. 2021 active Not Available Not Available Not Avai lable tamsulosi n 0.4 mg capsule TAKE 1 CAPSULE EVERY DAY 2022 active Not Available Not Available Not Avai lable baclofen 10 mg tablet Take 1 tablet 3 times a day by oral route as needed. 11/16 completed Not Available Not Available Not Available cephalexi n 500 mg capsule Take 1 capsule 3 times a day by oral route. 12/13 completed Not Available Not Available Not Available paroxetin e 20 mg tablet TAKE 1 TABLET EVERY DAY active Not Available Not Available No t Available pantopraz ole 40 mg tablet,de layed release active Not Available Not Available Not Available lisinopri l 10 mg tablet Take 1 tablet every day by oral route. 2020 active Not Available Not Available Not Avai lable warfarin 5 mg tablet Warfarin Sodium 5 MG Oral Tablet QTY: 0 tablet Days: 0 Refills: 0 Written: 10/19/15 Patient Instruct ions: monitore d by Dr. Maya 06/10 completed Not Available Not Available Not Available nitroglyc nicolas 0.4 mg sublingua l tablet DISSOLVE ONE TABLET UNDER THE TONGUE EVERY 5 MINUTES NEEDED FOR CHEST PAIN. DO NOT EXCEED A TOTAL OF 3 DOSES IN 15 MINUTES 08/09 completed Not Available Not Available Not Available aspirin 81 mg tablet Take 1 tablet every day by oral route. 02/21 completed Not Available Not Available Not Available mupirocin 2 % topical ointment 08/16 completed Not Available Not Available Not Available diazepam 10 mg tablet take 1 tablet 1/2 hour before procedur e 08/16 completed Not Available Not Available Not Available cefuroxim e axetil 500 mg tablet twice a day by oral route. 11/01 completed Not Available Not Available Not Available paroxetin e 40 mg tablet Take 1 tablet every day by oral route. 03/18 completed Not Available Not Available Not Available ketorolac 60 mg/2 mL intramusc ular solution Inject 2 mL every day by intramus cular route. 02/24 completed Pt tolerate d well and left without incident - R. Carmahinll bronson [employer] Not Available Not Available Not Available lisinopri l 40 mg tablet Take 0.5 tablets twice a day by oral route. active Not Available Not Available No t Available dicyclomi ne 10 mg capsule active Not Available Not Available Not Available finasteri de 5 mg tablet TAKE 1 TABLET EVERY DAY active Not Available Not Available No t Available brimonidi ne 0.15 % eye drops active Not Available Not Available No t Available nabumeton e 500 mg tablet Take 1 tablet twice a day by oral route as needed for 30 days. 02/28 completed stopped 2 mo ago Not Available Not Available Not Available cyclobenz aprine 5 mg tablet Take 1 tablet every day by oral route as needed for 30 days. 2021 active Not Available Not Available Not Avai lable Zovirax 5 % topical cream 08/16 completed Not Available Not Available Not Available Alphagan P 0.1 % eye drops active Not Available Not Available No t Available lidocaine (PF) 10 mg/mL (1 %) injection solution Take 2 mL every day by injectio n route. 07/15 completed Not Available Not Available Not Available ProAir HFA 90 mcg/actua tion aerosol inhaler Inhale 2 puffs every 4 hours by inhalati on route as needed. 2020 active Not Available Not Available Not Avai lable Lumigan 0.01 % eye drops 1 drop both eyes QD active Not Available Not Available No t Available Eliquis 5 mg tablet Take 1 tablet twice a day by oral route. 2021 active Not Available Not Available Not Avai lable Eliquis 2.5 mg tablet twice a day by oral route. 10/07 completed Not Available Not Available Not Available Breo Ellipta 200 mcg-25 mcg/dose powder for inhalatio n Inhale 1 puff every day by inhalati on route. 03/27 completed Not Available Not Available Not Available Vitals Date Recorded Body height Respiratory rate Body mass index (BMI) Body weight Body temperature Heart rate Oxygen saturation Oxygen saturation in Arterial blood by Pulse oximetry Pain severity - 0-10 verbal numeric rating [Score] - Reported Systolic And Diastolic Provider Name and Address Organization Details Last Updated DateTime 2 172.72 cm 16 /min 24 kg/m2 38137.5 2 g 97.1 [degF] 69 /min 97 % 97 % 0 127/84 mm[Hg] Consuelo Agudelo [facility] 09:21:36 Date Recorded Body height Body mass index (BMI) Body weight Body temperature Heart rate Oxygen saturation Oxygen saturation in Arterial blood by Pulse oximetry Pain severity - 0-10 verbal numeric rating [Score] - Reported Systolic And Diastolic Provider Name and Address Organization Details Last Updated DateTime 2 172.72 cm 23.8 kg/m2 72043.8 5 g 97.6 [degF] 69 /min 96 % 96 % 7 130/78 mm[Hg] Toya Betts [facility] 13:42:19 Date Recorded Body height Body mass index (BMI) Body weight Body temperature Oxygen saturation Oxygen saturation in Arterial blood by Pulse oximetry Respiratory rate Heart rate Systolic And Diastolic Provider Name and Address Organization Details Last Updated DateTime 2 172.72 cm 23.3 kg/m2 00836.6 3 g 98.9 [degF] 96 % 96 % 16 /min 70 /min 124/70 mm[Hg] Ignacio Ortiz [facility] 17:17:11 Date Recorded Body height Body mass index (BMI) Body weight Pain severity - 0-10 verbal numeric rating [Score] - Reported Body temperature Heart rate Oxygen saturation Oxygen saturation in Arterial blood by Pulse oximetry Systolic And Diastolic Provider Name and Address Organization Details Last Updated DateTime 2 172.72 cm 23.4 kg/m2 69763.2 2 g 9 97.3 [degF] 63 /min 100 % 100 % 126/82 mm[Hg] [facility] 2 11:43:48 Date Recorded Body height Body mass index (BMI) Body weight Respiratory rate Heart rate Oxygen saturation Oxygen saturation in Arterial blood by Pulse oximetry Body temperature Pain severity - 0-10 verbal numeric rating [Score] - Reported Systolic And Diastolic Provider Name and Address Organization Details Last Updated DateTime 2 172.72 cm 23.4 kg/m2 88295.9 4 g 16 /min 72 /min 97 % 97 % 96.6 [degF] 0 112/77 mm[Hg] Consuelo [facility]udelo [facility] 2 11:10:22 Social History Question Answer Notes LastModified by Organizat ion Details LastModified Time Tobacco Smoking Status Current Every Day Smoker [facility]ita [facility]ham [facility] 11/03/2019 08:55:22 Do You Have An Advance Directive? No Prloject Torri Info Given 08/11/14 & 04/12/15 Information not available 11/29/2013 How Much Tobacco Do You Chew? None [email or web address] Information not available 09/06/2016 Which Illicit Or Recreational Drugs Have You Used? Denies Information not available 07/08/2016 Alcohol Use No Information n ot available 08/30/2013 Marital Status 3 Children Informatio n not available 08/30/2013 What Was The Date Of Your Most Recent Tobacco Screening? 04/04/2022 [email or web address] Information not available 04/04/2022 At What Age Did You Start Smoking Tobacco? 19 Information not available 08/11/2014 How Much Tobacco Do You Smoke? 1 PPD [email or web address] Information not available 07/18/2020 Has Tobacco Cessation Counseling Been Provided? Yes [email or web address] Information not available 02/21/2022 On What Date Was Tobacco Cessation Counseling Provided? 04/04/2022 [email or web address] Information not available 04/04/2022 How Many Years Have You Smoked Tobacco? 50 Information not available 08/11/2014 Sex: Unknown Functional Status Question Answer Note LastModified by Organizat ion Details LastModified Time Do you use any illicit or recreational drugs? No [email or web address] Information not available 04/04/2022 Do you or have you ever used any other forms of tobacco or nicotine? No [email or web address] Information not available 04/04/2022 What is your level of alcohol consumption? None Information not available 07/08/2016 Do you or have you ever used smokeless tobacco? Never used smokeless tobacco Information not available 11/03/2019 What is your occupation? Retired Information not available 07/08/2016 Do you or have you ever used e-cigarettes or vape? Never used electronic cigarettes Information not available 11/03/2019 What is your exercise level? Moderate [email or web address] Information not available 11/29/2013 Mental Status None recorded. Family History Relationship Description Onset Age of this Age Resolved Age Notes LastModified by Organization Details LastModified Time Mother Old-age 98 [email or web address] Not available 04/16/2016 08:15:00 Father Malignant neoplastic disease 79 liver [email or web address] Not available 2015 08:15:00 Medical History Condition Response Cancer (location) Y Other N Gout Y Thyroid Disease N Kidney Stones N Measles/Mumps N Emphysema/COPD N Sexually Transmitted Disease N Depression N Prostate Problems N Vascular Disease N Rash/Skin Condition N Amputation (location) N Parkinson's N Paralysis N Headaches/Migraines N Cardiac Pacemaker/defibrillator N Nerve Damage / Neuropathy N Arthritis Y Sleep disorder/Insomnia N Infertility N Heart disease / Heart Attack Y Crohn's Disease N HIV/AIDS N Stroke/TIA N Colon Problems N High Cholesterol Y Serious Injuries N Kidney Disease N Memory Loss/Alzheimer's N Gallbladder disease N High blood pressure Y Congestive heart failure N Falls N Alcohol Overuse N Blood Thinner Treatment Y Hormone Replacement N Nervous Breakdown N Pisano's Esophagus N Anemia N Urinary Problems Y Colon Polyps N Gastritis N Hospitalizations (other than operations) N Back pain N Diabetes N Rheumatic Fever N Bleeding Disorder N Cardiac Arrhythmias /irregular heart rat e Y Osteopenia/Osteoporosis N Anxiety/Stress Y Asthma N Vision Problems N Erectile / Sexual Dysfunction N Ostomies (location) N Seizures N Jaundice N Sleep Apnea N Hepatitis N Past Reacton to Contrast [employer] N Cirrhosis N GERD/Ulcer Y Chicken Pox N Allergies (other than meds) N Immunizations Vaccine Type Date Status Note Provider Nam e and Address Organization Details Recorded Time pneumococcal polysaccharide PPV23 4 completed Not Available [facility] 09/11/2019 03:39:20 tetanus toxoid, adsorbed 4 completed Not Available [facility] 09/11/2019 02:48:54 Influenza, split virus, trivalent, preservative 4 completed Not Available [facility] 09/11/2019 03:46:30 Influenza, split virus, trivalent, PF 5 completed Not Available [facility] 09/11/2019 03:42:52 Influenza, high-dose, trivalent, PF 3 completed Consuelo Agudelo [facility] 08/08/2022 11:01:17 Pneumococcal conjugate PCV 13 6 completed Not Available [facility] 09/11/2019 04:04:35 Influenza, split virus, trivalent, PF 6 completed Not Available [facility] [facility] 09/11/2019 02:40:34 COVID-19, mRNA, LNP-S, PF, 100 mcg/0.5mL dose or 50 mcg/0.25mL dose 1 completed Not Available [facility] 07/27/2021 19:02:58 COVID-19, mRNA, LNP-S, PF, 100 mcg/0.5mL dose or 50 mcg/0.25mL dose 1 completed Not Available [facility] 07/27/2021 19:02:58 Influenza, split virus, trivalent, PF 7 completed Not Available [facility] 09/11/2019 02:25:35 COVID-19, mRNA, LNP-S, PF, 100 mcg/0.5mL dose or 50 mcg/0.25mL dose 1 completed Consuelo Agudelo [facility] 08/08/2022 11:01:17 Influenza, high-dose, trivalent, PF 8 completed Not Available [facility] 09/11/2019 02:29:12 COVID-19, mRNA, LNP-S, PF, 100 mcg/0.5mL dose or 50 mcg/0.25mL dose 1 completed Consuelo Agudelo [facility], [facility] 08/08/2022 11:01:17 Influenza, high-dose, trivalent, PF 9 completed Not Available [facility] 09/11/2019 03:49:54 Influenza, high-dose, quadrivalent, PF 0 completed Inge Starks [facility], [facility] 07/18/2020 10:28:22 Influenza, high-dose, quadrivalent, PF 1 completed Consuelo Agudelo [facility] 08/09/2021 09:24:03 Past Encounters Encounter ID Performer Location Encounter Start Date Encounter Closed Date Diagnosis/Indication Diagnosis SNOMED-CT Code Diagnosis ICD10 Code Diagnosis IMO Codes Diagnosis Note [id number] FELICIA Harrell [facility] [address] [place] [address] 08/30/2013 14:45:26 08/30/2013 17:20:53 Acute low back pain [id number] toradol today, start mdp tomorrow, ice, heat , refer to orthopedic Hypercholesterolemia 62488172 chronic, status unknown: refill med, appt w dr maya to establish Benign ess ential hypertension 7557639 chronic, stable: cont meds, routine exam Gastroesop hageal reflux disease 247296695 chronic, stable: controlled by diet Gout 90572460 chronic, stable: monitor 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 No change in regimen until lab results reviewed. Better TLC. Recheck as scheduled. Recurrent major depression in partial remission 04737528 chronic, improving. Continue medication regimen as noted and follow up as scheduled. 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 Benign ess ential hypertension 8503494 chronic, controlled , continue regimen. Continue home bp monitorig. Recheck as scheduled. Low back pain 220805973 Lo w back pain, acute exacerbati on of chronic, uncontroll ed. await MRI [id number] Doug Maya DO [facility] [address] [place] [address] 10/18/2013 10:50:22 10/19/2013 09:39:03 Neoplasm of uncertain behavior of skin 00648012 biopsy done of left ear per procedure documentat ion, follow up instructio ns given. 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 known CAD. Myoview perfusion imaging ordered to determine functional significan ce of/or extent of myocardial ischemia or scar from CAD and to assess myocardial viability Microscopic hematuria 591928042 new, needs further evaluation to ensure stability and to ensure nonmaligna nt causes. 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 Stable. Continue regimen as listed and follow up as scheduled. [id number] Doug Maya DO [facility] [address] [place] [address] 04/04/2014 15:26:51 04/05/2014 08:25:13 Adult health examination 040434753 Medicare Annual Wellness Visit done today. Counseling 851014545 End o f Life and advance directives discussed today. Project Torri given to patient with follow up instructio ns. Normal bod y mass index 76578602 BMI on chart and recorded for quality measure documentat ion Administra tion of pneumococcal vaccine 96580906 Cough 09271217 Screening for malignant neoplastic disease 77612149 Pure hypercholesterolemia 828774893 Chronic, controlled , continue same, follow up as scheduled Benign ess ential hypertension 7345735 chronic, controlled , continue regimen. Continue home bp monitorig. Recheck as scheduled. [id number] Doug Maya DO [facility] [address] [place] [address] 04/29/2014 13:58:18 05/02/2014 07:10:28 Benign essential hypertension 3341188 chronic, controlled , continue regimen. Continue home bp monitorig. Recheck as scheduled. Anemia 423136793 new, add supplement ation and recheck as ordered Pure hypercholesterolemia 225235033 chronic, controlled continue regimen as before. Recheck as scheduled. Chronic ob structive pulmonary disease 19143176 chronic with emphysema. Continue same treatments and monitor for worsening symptoms. Pulmonary emphysema 32683543 chronic, continue current regimen and monitor for worsening symptoms Neck pain 56927681 [id number] Doug Maya DO [facility] [address] [place] [address] 07/04/2014 10:17:24 07/04/2014 12:16:25 Hypercholesterolemia 01099295 chronic , uncontroll ed due to noncomplia nce Injury of lower leg 035264885 acute, ice and elevate Cellulitis of lower leg 818517453 acute, needs treatment. Wound care instructio n [id number] Doug Maya DO [facility] [address] [place] [address] 08/11/2014 11:05:23 08/11/2014 12:44:27 Chronic obstructive pulmonary disease 25711728 chronic with emphysema. Continue same treatments and monitor for worsening symptoms. Pt must quit smoking Pulmonary emphysema 31685947 chronic, continue current regimen and monitor for worsening symptoms Actinic keratosis recurrent, will destroy using cryotherap y Pure hypercholesterolemia 869990603 chronic, controlled continue regimen as before. Recheck as scheduled. Influenza vaccine needed [id number] Doug Maya DO [facility] [address] [place] [address] 12/01/2014 15:27:33 12/01/2014 15:55:19 Pure hypercholesterolemia 267536606 chronic, controlled continue regimen as before. Recheck as scheduled. Benign ess ential hypertension 9958915 chronic, controlled , continue regimen. Continue home bp monitorig. Recheck as scheduled. Single cade or depressive episode, in full remission 386409924 chronic, stable. Continue medication regimen as noted and follow up as scheduled. Actinic keratosis shave biopsy per procedure detail Palpitations 90983802 acut e, needs work up. EKG ordered [id number] KIM Brown [facility] [address] [place] [address] 12/09/2014 16:35:43 12/12/2014 08:08:58 Achilles tendinitis 45663848 Acute, needs treatment. Rx for Medrol dose jacob given. Pt advised to take the pain medication he has at home. REturn to office or go to ER if symptoms worsen. [id number] KIM Brown [facility] [address] [place] [address] 12/12/2014 12:50:08 12/12/2014 14:51:10 Chest pain 03978730 Acute, unclear etiology. Will work-up for cardiac etiology. EKG unchanged from previous, no obvious ischemic changes.Re turn or go to ER if symptoms worsen or persist. Achilles tendinitis 20612785 Acute, not improving. Cont Medrol dose jacob. Pt advised to take the pain medication he has at home. Order for MRI given b/c of continuing pain. REturn to office or go to ER if symptoms worsen. Angina pectoris 222352767 acute, unclear etiology. concerned for cardiac etiology. ECHO and Stress test ordered. Return or go to ER if symptoms worsen or persist. [id number] KIM Brown [facility] [address] [place] [address] 12/19/2014 13:59:38 12/19/2014 15:46:07 Achilles tendinitis 97775518 Acute, n ot improving. Pt advised to take the pain medication he has at home. Take Ibuprofen as prescribed . Ortho referral given, call for an appointmen t RUDY. REturn to office or go to ER if symptoms worsen. [id number] KIM Brown [facility] [address] [place] [address] 12/23/2014 09:55:16 12/23/2014 11:12:01 Achilles tendinitis 57252073 Acute, Improving. Pt seen by Ortho. Currently in walking boot. Scheduled to f/u with ortho doctor in 3 weeks. Cont Ibuprofen. Return to office or go to ER if symptoms worsen. Angina pectoris 054695879 acute, no further episodes. ECHO showed EF=56%. Stress test postponed due to Achilles injury. F/u after test is done to review results. Return or go to ER if symptoms worsen or persist. [id number] Doug Maya DO [facility] [address] [place] [address] 03/07/2015 13:49:16 03/07/2015 13:53:52 [id number] Doug Maya DO [facility] [address] [place] [address] 03/09/2015 13:07:14 03/09/2015 14:13:34 Atrial fibrillation 48096912 chronic, stable, continue regimen as noted. Stroke risk reduction discussed. Abdominal pain 99802662 ac kolton, unclear etiology. work up negative, follow up with GI Low blood pressure 84047364 unclear etiology. May have been vasovagal [id number] Doug Maya DO [facility] [address] [place] [address] 03/17/2015 13:07:36 03/17/2015 13:34:27 Neoplasm of uncertain behavior of skin 72884927 biopsy done per procedure documentat ion, follow up instructio ns given. [id number] Doug Maya DO [facility] [address] [place] [address] 04/12/2015 08:08:44 04/12/2015 09:20:40 Adult health examination 239372372 Medicare Annual Wellness Visit done today. Counseling 621685813 End o f Life and advance directives discussed today. Project Torri given to patient with follow up instructio ns. Screening for malignant neoplastic disease 72431581 Pure hypercholesterolemia 846255161 Chronic, controlled , continue same, follow up as scheduled Benign ess ential hypertension 3610081 chronic, controlled , continue regimen. Continue home bp monitorig. Recheck as scheduled. Peripheral vascular disease 391967973 will be getting angioplast y soon. Normal bod y mass index 25168970 BMI on chart and recorded for quality measure documentat ion [id number] Daisy GaffneyFELICIA renteria [facility] [address] [place] [address] 04/25/2015 15:37:27 04/25/2015 16:24:16 Anemia 839250478 chronic: multivit w fe , recheck routine lab Atrial fibrillation 70156356 chronic , stable: cont anticoag Benign ess ential hypertension 3412177 chronic, stable: cont meds, routine exam Benign pro static hyperplasia 998602270 chronic, asymptomat ic: routine lab eval, monitor for retention Chronic ob structive pulmonary disease 49754360 chronic, stable; recently quit smoking, monitor for wheezing and sob Hypercholesterolemia 34283898 chronic, controlled : refill med, appt w dr maya to establish Influenza vaccine needed 3601524729 [id number] Doug Maya DO [facility] [address] [place] [address] 09/18/2015 15:59:59 09/19/2015 08:24:04 Neoplasm of uncertain behavior of skin 41280506 D48.5 biopsy done x 2 per procedure documentat ion, follow up instructio ns given. Peripheral vascular disease 364122521 I73.9 failed angioplast y, wants another opinion. 04/12/15 Chronic ob structive pulmonary disease 06537389 J44.9 chronic with emphysema. Continue same treatments and monitor for worsening symptoms. Pulmonary emphysema 8743 3001 J43.8 chronic, continue current regimen and monitor for worsening symptoms Atrial fibrillation 4943 6004 I48.2 chronic, stable, continue regimen as noted. Stroke risk reduction discussed. Benign ess ential hypertension 2063832 I10 chronic, controlled , continue regimen. Continue home bp monitorig. Recheck as scheduled. Single cade or depressive episode, in full remission 627620095 F32.5 chronic, stable. Continue medication regimen as noted and follow up as scheduled. Thyroid nodule 067449038 E04.1 found on nondedicat ed imaging. Needs follow up with dedicated [place]. [id number] FELICIA Harrell [facility] [address] [place] [address] 09/21/2015 14:22:19 09/21/2015 16:11:08 Benign essential hypertension 3041754 I10 chronic, stable: cont meds, restart amlodipine 5 mg, monitor bp Chest pain 53740606 R07. 9 new, minor : ekg Atrial fibrillation 4943 6004 I48.91 chronic , stable: cont anticoag [id number] Doug Maya DO [facility] [address] [place] [address] 10/04/2015 09:54:29 10/04/2015 13:31:25 Benign essential hypertension 1367584 I10 chronic,at goal, continue regimen. Continue home bp monitoring . Recheck as scheduled. 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 Continue medical management and meds as listed. Recheck as scheduled. Peripheral vascular disease 225143162 I73.9 failed angioplast y, wants another opinion. 04/12/15 Pure hypercholesterolemia 022400968 E78.0 Chronic, controlled , continue same, follow up as scheduled [id number] FELICIA Harrell [facility] [address] [place] [address] 11/29/2015 09:39:59 11/29/2015 11:18:53 Claudication 430238622 I73.9 acute, improved post stent canalizati on: cont meds and therapies Anticoagulant therapy 18 4272368 Z79.01 send to Coumadin clinic for INR check this am Benign ess ential hypertension 2731314 I10 chronic, stable: cont meds, monitor bp [id number] Doug Maya DO [facility] [address] [place] [address] 01/12/2016 11:24:05 01/12/2016 12:47:03 Angina pectoris 005592202 I20.9 chronic, stable. Continue medical management and meds as listed. Recheck as scheduled. Neoplasm o f uncertain behavior of skin 29620120 D48.5 destructio n of lesion done per procedure documentat ion, follow up instructio ns given. Peripheral vascular disease 064435884 I73.9 better after successful angioplast y, [place] 04/12/15 Chronic ob structive pulmonary disease 55024642 J44.9 chronic with emphysema. Continue same treatments and monitor for worsening symptoms. Pulmonary emphysema 8743 3001 J43.8 chronic, continue current regimen and monitor for worsening symptoms Atrial fibrillation 4943 6004 I48.2 chronic, stable, continue regimen as noted. Stroke risk reduction discussed. Benign ess ential hypertension 2688501 I10 chronic, controlled , continue regimen. Continue home bp monitorig. Recheck as scheduled. Single cade or depressive episode, in full remission 095529787 F32.5 chronic, stable. Continue medication regimen as noted and follow up as scheduled. [id number] Doug Maya DO [facility] [address] [place] [address] 04/16/2016 07:59:38 04/16/2016 08:56:04 Adult health examination 926475998 Z00.00 Medicare Annual Wellness Visit done today. Administra tion of pneumococcal vaccine 58111079 Z23 Screening for malignant neoplastic disease 91946283 Z12.5 Pure hypercholesterolemia 392607632 E78.0 Chronic, controlled , continue same, follow up as scheduled Benign ess ential hypertension 1516001 I10 chronic, controlled , continue regimen. Continue home bp monitorig. Recheck as scheduled. Smoker 20245976 Z87.891 Current nicotine dependence . Patient has been counseled on the importance of stopping tobacco use and on the need for LDCT cancer screening and has the eligibilit y based on the questions listed in the order. Inguinal hernia 09425903 0 K40.90 acute, needs referral for repair after his wedding. Precaution s given regarding risk of incarcerat ion and need for immediate medical attention if he experience s pain. Body mass index 25-29 - overweight 460751763 Z68.25 E66.3 BMI 25. Normal BMI [id number] FELICIA Harrell [facility] [address] [place] [address] 06/05/2016 14:13:38 06/06/2016 08:50:29 Administration of influenza vaccine 01293699 Z23 Hypercholesterolemia 136 65462 E78.2 chronic, controlled : cont meds and montior labs , 3 mo f/u Atrial fibrillation 4943 6004 I48.91 chronic , stable: cont anticoag, see susanna at [facility] Neoplasm o f uncertain behavior of skin of forehead 10856122 D48.5 acute , recurrent: refer to derm [id number] [facility] [address] [place] [address] 07/08/2016 15:15:55 07/09/2016 15:27:27 Near syncope 665879686 R55 acute : ekg, carotid , labs Muscle weakness 96867941 M62.81 new: as above Dizziness 675907133 R42 new: as above Low back pain 455249967 M54.5 chronic, stable: cont meds , refill hydrocodon e #30 per dm today , use sparingly [id number] Doug Maya DO [facility] [address] [place] [address] 08/14/2016 16:22:18 08/14/2016 16:29:07 [id number] KIM Brown [facility] [address] [place] [address] 08/16/2016 14:27:17 08/20/2016 09:47:53 Neck pain 40648040 M54.2 Chronic, worsening. Flexeril to pharmacy. Advised to use extreme caution with medication . Cont pain medication . F/u with Dr. Wily finch Use heat. Thoracic back pain 66738 8004 M54.6 Chronic, worsening. treat as above. Chest pain 44343705 R07. 9 Acute, resolved. troponins in hospital negative, f/u with Dr. Aponte as scheduled. Atrial fibrillation 4943 6004 I48.91 Chronic, stable. INR checked today. Will monitor. Hyponatremia 39306944 E8 7.1 Acute, resolved in hospital will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 building so he is effectivel y homeless. He is living with his nephew but this is not something that can continue. Short-term lorazepam prescripti on provided as patient is visibly very anxious. Consult with marriage and family social worker see what they can offer COVID-19 480354842 U07.1 Nausea 253665010 R11.0 Patient with mild nausea following code 19. This may be a latent affect of the virus. Wart may be due to the doxycyclin e that was given to him by the ER provider. Many start probiotics and mild diet Health Concerns Section Related Observation LastModified by Organization Detai ls LastModified Time None Recorded Concern Status LastModified by Organization Details LastModified Time None Recorded Advance Directives Directive N: Prloject Torri info given 08/11/14 & 04/12/15 Payers Encounter Date Sequence Insurance Name Policy Number Policy Call Covered Member ID Call Member ID Guarantor Name 02/21/2022 1 [employer] - [employer] - CAPITATION PLAN - GOLD PLUS (MEDICARE REPLACEMENT HMO) Jhonny Sol [id number] Jhonny Sol 04/04/2022 1 [employer] - CAPITATION PLAN - GOLD PLUS (MEDICARE REPLACEMENT HMO) Jhonny Sol [id number] Jhonny Sol 04/04/2022 2 [employer] - GOLD PLUS (MEDICARE REPLACEMENT/AD VANTAGE - HMO) Jhonny Sol [id number] Jhonny Sol 06/13/2022 1 [employer] - [employer]O - CAPITATION PLAN - GOLD PLUS (MEDICARE REPLACEMENT HMO) Jhonny Sol [id number] Jhonny Sol 07/04/2022 1 [employer] - [employer]O - CAPITATION PLAN - GOLD PLUS (MEDICARE REPLACEMENT HMO) Jhonny Sol [id number] Jhonny Sol 08/08/2022 1 [employer] - [employer]O - CAPITATION PLAN - GOLD PLUS (MEDICARE REPLACEMENT HMO) Jhonny Sol [id number] Jhonny Sol Notes Date Note Type Note Provider Name and Address Organization Details Recorded Time 2 text/html Neck PainReported by PatientHPIFor reason for visit, patient reportsexacerbation of chronic complaint. For location, patient reportslower neck,neck and shoulder, andpain radiates to shoulder(s)}. For quality, patient reportsdull/achy. For severity, patient reportsmoderate __. For aggravating factors, patient reportsmovement/position ing,flexing neck,extending neck, andturning head. For duration, patient reportsconstant. For alleviating factors, patient reportsrest. For associated symptoms, patient reportsdenies weak limbs. KIM Mercado [address] [facility] [address], [place], [address], [facility] - [facility], [facility] 02/21/2022 10:24:36 2 text/html Lower Body PainReported by PatientHPIFor reason for visit, patient reportsacute complaint. For location, patient reportsr ankle (laterally). For quality, patient reportssharp/stabbing. For severity, patient reportssevere __. For onset/timing, patient reportsabruptand1 days ago. For aggravating factors, patient reportsmovement/position ing (eversion),walking, andweight bearing. For duration, patient reportsconstant. For context, patient reportsinjury/overuse (he was up on the ladder cleaning his gutters and when he got down his ankle was painful.). For alleviating factors, patient reportsrest. For associated symptoms, patient reportsdenies numbness of the legs/feetanddenies tingling.ROS as noted in the HPI CORONAVIRUS SCREENING TOOL Are you experiencing any NEW symptom(s) listed below that is not due to another health problem None of the below Is anyone else in your household experiencing any NEW symptoms No In the past 2 weeks did you have close contact (within 6 feet for at least 15 minutes) with someone with symptoms of COVID-19 or who tested positive for COVID-19 No In the past 2 weeks have you been tested for COVID-19 No, I have not been tested Why did you get tested? Please select all that apply N/A In the past 2 weeks has someone in your household tested positive for COVID-19 No Have you ever received a dose of COVID-19 vaccine? Yes Which vaccine product did you receive? Moderna Imported from [employer] on 04/04/2022 Doug Ferraro DO [address], [place], [address], [facility], [facility] 04/04/2022 14:16:00 2 text/html Sore ThroatReported by Patient Liana Alexandra APRN [address], [place], [address], [facility], [facility] 06/13/2022 17:47:23 2 text/html Skin LesionReported by PatientHPIFor quality, patient reportssore. For reason for visit, patient reportsfollow-up of acute complaint(requesting suture removal right upper eye lid.placed 1 week ago today. at [facility]. had a fall.). For location, patient reportsface. For severity, patient reportsbetter. For duration, patient reportsconstant. For onset/timing, patient reportsabrupt. For context, patient reportstrauma. For associated symptoms, patient reportsno fever. For alleviating factors, (sutures). For aggravating factors, (none). Back PainReported by PatientHPIFor reason for visit, patient reportsacute complaint(was lifting at least 50 lb wt. acute onset of right lumbar pain, no radicular pain.). For location, patient reportslumbar. For onset/timing, patient reportsabrupt. For aggravating factors, patient reportsmovement/position ing. For severity, patient reportsunchanged. For duration, patient reportsintermittent. For context, patient reportsheavy liftingandhistory of prior back problems(hx of back surgery l4-5 x 2 in the past.). For alleviating factors, patient reportsrest. For associated symptoms, patient reportsdenies weak limbs,denies numbness of the legs/feet, anddenies tingling. Established patient. Here today for suture removal from R upper eyelid. He is also having R flank pain which started yesterday after he lifted a 50lb tool box. FELICIA Keller [address], [place], [address], [facility] [employer] 07/04/2022 20:05:49 2 text/html Transitional Care Management (TCM)Reported by PatientPatient seen at the ER on 07/30/2022 and diagnosed with COVID 19. His symptoms are mostly resolved with some persistent fatigue and nausea. He was given a course of doxycycline by the ER KIM Mercado [address], [place], [address], [facility] [employer] 08/08/2022 12:56:21
--- OUTSIDE RECORDS SUMMARY | 2025-07-07 15:46 | XMS_ITS | Encounter Summary ---
Author Organization [facility] Address [address] [place] [address] Care Team Providers Care Stock Crane Operator Name Role Phone Diana Maldonado MD Primary Care Provider Encounter Details Date Type Department Care Team ([facility] Contact Info) Description 06/27/2025 Telephone [facility] Associates [facility] [address] [place] [address] [place] [address] Azael Lei MD [address] [place] [address] Dr Luciano [address] [place] [address] Social History Tobacco Use Types Packs/Day Years Used Date Smoking Tobacco: Every Day Cigarettes 0.5 Last attempted to quit: 08/14/2023 Smokeless Tobacco: Never Alcohol Use Standard Drinks/Week Comments No 0 [...] for your loved ones. For example, child protective services specialist or elderly care for an older adult? [...] Orientation Straight 10/15/2024 11 :48 AM EST documented as of this encounter Progress Notes * Brandy Mckeon MA - 06/27/2025 2:36 PM EST Paperwork was given to Dr. Lei to review. * Su Langadalupe - 06/27/2025 1:59 PM EST Patients daughter Gaby came into the office to drop off paperwork that she states has not been brought to our attention due to lack of communication to our office. She asks to please call her with any questions. documented in this encounter Plan of Treatment Upcoming Encounters Date Type Department Care Team (Late st Contact Info) Description 07/11/2025 11:30 AM EST Office Visit Adult Medicine [facility] [address] [place] [address] Diana Maldonado MD [address] [place] [address] 07/28/2025 3:30 PM EST Office Visit Adult Medicine [facility] [address] [place] [address] Diana Maldonado MD [address] [place] [address] 03/02/2026 9:15 AM EDT Ancillary Procedure [facility] Card[facility] Associates - [facility] [address] [facility] [address] [place] [address] 04/20/2026 9:30 AM EDT Office Visit Vascular Surgery - [place] [address] [place] [address] Casandra Arias MD [address] [place] [address] documented as of this encounter Visit Diagnoses Not on filedocumented in this encounter Additional Health Concerns Assessment Noted Time PHQ-9 Depression Total Score: 0 02/09/20 25 11:54 AM EDT documented as of this encounter Care Teams Stock Crane Operator Relationship Specialty Start Date End Date Diana Maldonado MD [address] [place] [address] PCP - General 01/17/23 documented as of this encounter
== END 2025-07-07 12:39 | disposition home or self-care (01) ==
LOC: CF 12:38
DX: Z13.89 Encounter for screening for other disorder (principal)

== ENCOUNTER 2025-07-08 09:46 | Outpatient (AMB) | payer OTHER, SELFPAY ==
--- OUTSIDE RECORDS SUMMARY | 2022-03-12 19:00 | XMS_ITS | Continuity of Care Document ---
Author Organization [facility] Address [address] [place] [id number] Phone Care Team Providers Care Personal Investment Adviser Name Role Phone RCM, Rendering Unavailable Unavailable Allergies, Adverse Reactions, Alerts Substance Reaction Status Criticality No Known Drug Allergies Active No I nformation Advance Directives Directive Yes / No Effective Date File Name No Information Encounters Encounter Description Practice Location Reason(s) For Visit Diagnoses Date Provider Providers Copied on Encounter [facility] , [address] [place] [address], [id number], tel:[phone] [facility] [place] No Information Feb-2 0-202 2 RCM Rendering . [address] [place] [address], [id number], . 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 [address] [place], [address], [place]. tel:[phone] [facility] , [address] [place] [address], [id number], tel:[phone] [facility] Location PresbyopiaPresence of intraocular lens Oct-0 8-201 8 RCM Rendering . [address] [place] [address], [address], [place]. tel: [phone] [facility] , [address] [place], [place], [id number], [place] tel:[phone] [facility] No Information 7 RCM Rendering . [address] [place], [address], [place]. tel: [phone] Family History Family Member Type Diagnosis Age At Onset Problem (finding) Fhx of cancer Problem (finding) Fhx of glaucoma Problem (finding) Fhx of hypertension Problem (finding) Fhx of cataract Payers Payer name Insurance type Covered alliance party ID Authoriza tion(s) No Information Social History Type Description Quantity Date Captured Comments Alcohol Use Details Unknown Caffeine Use Details Unknown Tobacco Use Status Current every day smoker Smoking Status Current every day smoker Non-Smoking Tobacco Use Details : No Details Available : No Details Available Sex Male Chief Complaint And Reason For Visit No Information Reason For Referral Reason For Referral No Information History Of Present Illness Encounter Date Complaint History Of Prese nt Illness No Information Functional Status Date Functional Assessmen t No Information Instructions Date Instruction Additional Infor key Impression/Plan 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 Impression/Plan Related to [facility] [place] revealed primary open angle glaucoma. Impression/Plan Related to [facility] revealed macular scar. Impression/Plan Related to [facility] revealed a posterior vitreous detachment. Impression/Plan Related to Refra ctive testing reveals myopia (nearsightedness). Impression/Plan Related to Locat ion 1: OD\nLocation 2: OS\nPriority: 4 Impression/Plan Related to Locat ion 1: OD\nLocation 2: OS\nPriority: 3 Impression/Plan Related to Locat ion 1: RUL\nLocation 2: RETA\nPriority: 4 Impression/Plan Related to Locat ion 1: OD\nLocation 2: OS\nPriority: 4 Impression/Plan Related to Locat ion 1: OD\nLocation 2: OS\nPriority: 4 Assessments Type Assessment Date No Information Patient Care Teams Name Effective Dates (start - stop) Status Members No Information
--- OUTSIDE RECORDS SUMMARY | 2022-03-12 19:00 | XMS_ITS | Continuity of Care Document ---
Author Organization [facility] Address [address] [place] [phone] Phone Care Team Providers Care Heading Saw Operator Name Role Phone RCM, Rendering Unavailable Unavailable Allergies, Adverse Reactions, Alerts Substance Reaction Status Criticality No Known Drug Allergies Active No I nformation Advance Directives Directive Yes / No Effective Date File Name No Information Encounters Encounter Description Practice Location Reason(s) For Visit Diagnoses Date Provider Providers Copied on Encounter [facility] , [address] [place] [address], [id number], tel:[phone] [facility] No Information Feb-2 0-202 2 RCM Rendering . [address] [place] [address], [id number], . 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 [address] [place], [address], [place]. tel:[phone] [facility] , [address] [place] [address], [id number], tel:[phone] [facility] Location PresbyopiaPresence of intraocular lens Oct-0 8-201 8 RCM Rendering . [address] [place] [address], [address], [place]. tel: [phone] [facility] , [address] [place], [place], [id number], [place] tel:[phone] [facility] No Information 7 RCM Rendering . [address] [place], [address], [place]. tel: [phone] Family History Family Member Type Diagnosis Age At Onset Problem (finding) Fhx of cancer Problem (finding) Fhx of glaucoma Problem (finding) Fhx of hypertension Problem (finding) Fhx of cataract Payers Payer name Insurance type Covered green party ID Authoriza tion(s) No Information Social [...] Instruction Additional Infor key Impression/Plan Related to Refra ctive testing reveals myopia (nearsightedness). Impression/Plan Related to [facility] revealed a posterior vitreous detachment. Impression/Plan Related to [facility] revealed macular scar. Impression/Plan Related to [facility] revealed primary open angle glaucoma. 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 Impression/Plan Related to Locat ion 1: OD\nLocation 2: OS\nPriority: 4 Impression/Plan Related to Locat ion 1: OD\nLocation 2: OS\nPriority: 4 Impression/Plan Related to Locat ion 1: RUL\nLocation 2: RETA\nPriority: 4 Impression/Plan Related to Locat ion 1: OD\nLocation 2: OS\nPriority: 3 Impression/Plan Related to Locat ion 1: OD\nLocation 2: OS\nPriority: 4 Assessments Type Assessment Date No Information Patient Care Teams Name Effective Dates (start - stop) Status Members No Information
[2025-07-08 10:00] VITALS: BMI 24.3
--- NOTE | 2025-07-08 10:00 | A.SPINEOV_ITS ---
Vital Signs 07/08/25 10:00 Height 5 ft 8 in Weight 160 lb BMI 24.3 Intake Visit Reasons: low back pain Intake Note: Mr. Sol is here today c/o low back pain. [place] [facility] Ends Down Checker Required: No Allergies codeine Allergy (Severe, Verified 07/08/25 10:01) Anaphylaxis Physical Exam Vital Signs: BMI result Body Mass Index 24.3 Assessment & Plan Assessment & Plan (1) Back pain: Code(s): M54.9 - Dorsalgia, unspecified Category: Medical Plan Dear Erica, Thank you for referring Mr Zuluaga to our office today. He is a very nice 84-year-old gentleman, lifelong smoker, history of AFib on Coumadin, AAA, 2 previous lumbar spine surgeries done many years ago who has had back pain since August of this year. He reports that it is aggravated with standing and walking. Especially getting up from a seated position is difficult. There is no lower extremity symptoms. He saw Dr. Pichardo at [facility], who felt the situation was going to be too complicated given the amount of scar tissue in his back, and his medical comorbidities so he was sent to see us for a 2nd opinion. He has not been to pain management yet. More less he has just been dealing with the pain as best he can. PMH: As above, history of AAA, lifelong smoker, AFib on Coumadin, lower extremity stents. Social hx: Smokes his whole life, does not drink use any recreational drugs Medications: Diltiazem, Lipitor, Flomax, finasteride, Coumadin, baby aspirin, paroxetine, metoprolol and a probiotic Allergies: Codeine Physical exam: Awake alert oriented no acute distress, strength normal, reflexes diminished Imaging review: Lumbar MRI done at [facility] shows severe degenerative disc disease at L4-5 and L5-S1 with Modic endplate changes. There is a central disc herniation that appears to be calcified at L5-S1 there are postsurgical changes at both of these levels. Lumbar CT shows chronic L1 compression fracture and will looks like osteoporotic bone. Impression: 84-year-old gentleman with 1 year of chronic low back pain, could be coming from his degenerative disc disease at L4-5. He has significant degenerative disc disease at L4-5 and L5-S1, however the treatment for this is typically spinal fusion, but because of his osteoporosis, his bones will not be able to withstand the surgery. Likely he would have more pain coming out of the operation. We agree with Dr. Pichardo, this patient is better suited for pain management. Dr. Garcias reviewed the films with me and agrees with the plan as outlined above. Thank you for allowing us to care for your patient. The total time spent with this visit with this patient was 45 minutes reviewing history, physical exam, lumbar imaging review, and implementation of treatment plan or further diagnostic testing Shaka Garcias MD,PhD [facility] Coding Level of Care Code New Pt Level 4 (74080) Diagnoses Back pain M54.9
--- OUTSIDE RECORDS SUMMARY | 2025-07-08 10:56 | XMS_ITS | Clinical Summary ---
Author Organization [facility] Address [address] [place] [address] Phone Care Team Providers Care Rfid Systems Engineer Name Role Phone Diana Maldonado MD Primary [...] Problem Noted Date Diagnosed Date Atrial fibrillation ([facility] V24, [facility] V28) 1 09/06/2023 Syncope 03/19/2024 Overview (07/19/2024): [...] given his diaphoresis and arrange for a laboratory monitor to assess for any significant cardiac rhythm abnormalities. He has an echocardiogram scheduled for later this year. PVD (peripheral vascular disease) ([facility] V24) 11/27/2023 Overview (07/19/2024): Last Assessment & Plan: Patient with a history of peripheral vascular disease has been followed by vascular medicine Thoracic aneurysm, ruptured ([facility] V24, [facility]/ C V28) 11/27/2023 Overview (07/19/2024): Last Assessment & Plan: Patient's echocardiogram has shown mild dilatation of the ascending aorta. No significant changes on most recent echocardiogram. Deep vein thrombosis (DVT) o f proximal vein of left lower extremity ([facility] V24, [facility] V28) 02/14/2023 Renal cyst 09/13/2008 Overview (07/19/2024): [...] COPD by GOL D classification (CMS/HCC V24, CMS/[facility] V28) 09/09/2007 Overview (07/19/2024): Last Assessment & [...] Care Team Description 06/27/2025 Telephone Adult Medicine [place] [address] [place] [address] Diana Maldonado MD 06/27/2025 Telephone [facility] Cardiology Associates [facility] [address] [facility] [address] [place] [address] Azael Lei MD 06/27/2025 Telephone Adult Medicine - [address] [phone] Diana Maldonado MD 06/24/2025 11:05 AM EDT Lab Draw Station - [place] [address] [place] [address] Atrial fibrillation, unspecified type (CMS/HCC V24, CMS/HCC V28) 06/24/2025 Anticoagulation - Warfarin Visit [facility] [address] [place] [phone] Azael Lei MD Atrial fibrillation, unspecified type (CMS/HCC V24, CMS/HCC V28) (Primary Dx) 06/06/2025 Anticoagulation - Warfarin Visit [facility] [address] [place] [address] Azael Lei MD Atrial fibrillation, unspecified type (CMS/HCC V24, CMS/HCC V28) (Primary Dx) 05/30/2025 Anticoagulation - Warfarin Visit [facility] [address] [place] [address] Azael Lei MD Atrial fibrillation, unspecified type (CMS/HCC V24, CMS/HCC V28) (Primary Dx) 05/02/2025 Anticoagulation - Warfarin Visit [facility] [address] [place] [address] Azael Lei MD Atrial fibrillation, unspecified type (CMS/HCC V24, CMS/HCC V28) (Primary Dx) 04/20/2025 9:30 AM EDT Office Visit Vascular Surgery - [place] [address] [place] [address] Casandra Arias MD PAD (peripheral artery disease) (CMS/HCC V24) (Primary Dx) 04/15/2025 Anticoagulation - Warfarin Visit [facility] [address] [place] [address] Azael Lie MD Atrial fibrillation, unspecified type (CMS/HCC V24, CMS/HCC V28) (Primary Dx) 04/08/2025 Anticoagulation - Warfarin Visit [facility]iology Associates [facility] [address] [facility] [address] [place] [address] Azael Lei MD Atrial fibrillation, unspecified type (CMS/HCC V24, CMS/HCC V28) (Primary Dx) from Last 3 Months Immunizations Immunization Administration Dates Next Due Hepatitis B (Ithdgym-D-Fhbdr , Recombivax HB-Adult) 19yo and older 11/16/2009,07/13/2009,06/01/2009 [...] removed chest left UPPER GASTROINTESTINAL ENDOSCOPY PROCEDURE: [place] UPPER GI ENDOSCOPY PERFORMED; COMMENT: [place] historic [...] care for your loved ones. For example, children's choir director or elderly care for an older adult? [...] AM EST Office Visit Adult Medicine - [place] [address] [place] [phone] Diana Maldonado MD [address] [place] [address] 07/28/2025 3:30 PM EST Office Visit Adult Medicine [facility] [address] [place] [phone] Diana Maldonado MD [address] [place] [address] 03/02/2026 9:15 AM EDT Ancillary Procedure [facility] Cardiology Associates - [facility] [address] [facility] [address] [place] [address] 04/20/2026 9:30 AM EDT Office Visit Vascular Surgery - [place] [address] [place] [address] Casandra Arias MD [address] [place] [phone] Health Maintenance Due Date Last Done Comments [...] sec LAB COAGULATION METHOD 06/24/2025 11:53 AM [facility] INR 1.8 LAB COAGULATION METHOD 06/24/2025 11:53 AM [facility] Blood Venous blood specimen / Unknown Venipuncture / Unknown 06/24/2025 11:05 AM EDT 06/24/2025 11:05 AM EDT us Azael Lei MD LAB BLOOD ORDERABLES Final Res ult [facility] [address] [place] [address], [place] [phone] * Lipid panel with reflex to direct LDL (10/11/2024 10:48 AM EST) Cholesterol 123 0 - 200 mg/dL LAB CHEMISTRY METHOD 10/11/2024 12:[address] [facility] Triglycerides 109 0 - 150 mg/dL LAB CHEMISTRY METHOD 10/11/2024 12:[address] [facility] HDL 45 >=40 mg/dL LAB CHEMISTRY METHOD 10/11/2024 12:33 PM [facility] LDL Calculated 56 0 - 100 mg/dL LAB CHEMISTRY METHOD 10/11/2024 12:[address] [facility] VLDL Cholesterol Ketan 21.8 mg/dL LAB CHEMISTRY METHOD 10/11/2024 12:[address] [facility] Non HDL Chol. (LDL+VLDL) 78 <145 mg/dL LAB CHEMISTRY METHOD 10/11/2024 12:33 PM [facility] Chol/HDL Ratio 2.7 0.0 - 4.4 LAB CHEMISTRY METHOD 10/11/2024 12:33 PM [facility] Blood Venous blood specimen / Unknown Venipuncture / Unknown 10/11/2024 10:48 AM EST 10/11/2024 10:48 AM EST Diana Maldonado MD LAB BLOOD ORDERABLES F inal Result Performing Organization Address City/[facility]/ZIP Co de Phone Number [facility] [address] [place] [address], [place] [phone] * (ABNORMAL) Comprehensive metabolic panel (10/11/2024 10:48 AM EST) Sodium 142 133 - 145 mmol/L LAB CHEMISTRY METHOD 10/11/2024 12:33 PM [facility] Potassium 4.0 3.5 - 5.5 mmol/L LAB CHEMISTRY METHOD 10/11/2024 12:33 PM [facility] Chloride 109 96 - 110 mmol/L LAB CHEMISTRY METHOD 10/11/2024 12:33 PM [facility] CO2 26 21 - 32 mmol/L LAB CHEMISTRY METHOD 10/11/2024 12:33 PM [facility] Anion Gap 7 3 - 11 LAB CHEMISTRY METHOD 10/11/2024 12:33 PM [facility] Glucose 111(H) 70 - 100 mg/dL LAB CHEMISTRY METHOD 10/11/2024 12:33 PM [facility] BUN 16 5 - 25 mg/dL LAB CHEMISTRY METHOD 10/11/2024 12:33 PM [facility] Creatinine 1.11 0.70 - 1.30 mg/dL LAB CHEMISTRY METHOD 10/11/2024 12:33 PM [facility] eGFR 67 >=60 mL/min/1. 73m2 LAB CHEMISTRY METHOD 10/11/2024 12:33 PM [facility] Comment:Calculation based on the Chronic Kidney Disease Epidemiology Collaboration (CKD-EPI) equation refit without adjustment for race. BUN/Creatinine Ratio 14.4 LAB CHEMISTRY METHOD 10/11/2024 12:33 PM [facility] Calcium 8.5 8.5 - 10.5 mg/dL LAB CHEMISTRY METHOD 10/11/2024 12:33 PM [facility] AST (SGOT) 18 10 - 42 unit/L LAB CHEMISTRY METHOD 10/11/2024 12:33 PM [facility] ALT (SGPT) 16 10 - 60 unit/L LAB CHEMISTRY METHOD 10/11/2024 12:33 PM [facility] Alkaline Phosphatase 90 42 - 121 unit/L LAB CHEMISTRY METHOD 10/11/2024 12:[address] [facility] Total Protein 6.2 6.0 - 8.0 g/dL LAB CHEMISTRY METHOD 10/11/2024 12:[address] [facility] Albumin 3.4 3.2 - 5.0 g/dL LAB CHEMISTRY METHOD 10/11/2024 12:[address] [facility] Total Bilirubin 0.7 0.0 - 1.4 mg/dL LAB CHEMISTRY METHOD 10/11/2024 12:[address] [facility] Blood Venous blood specimen / Unknown Venipuncture / Unknown 10/11/2024 10:48 AM EST 10/11/2024 10:48 AM EST us Diana Maldonado MD LAB BLOOD ORDERABLES F inal Result [facility] [address] [place] [address], [place] [phone] from Last 3 Months or Most Recently Relevant to Health Maintenance Insurance [employer] MEDICARE ADVANTAGE on file MEDICARE Care Teams Rfid Systems Engineer Relationship Specialty Start Date End Date Diana Maldonado MD [address] [place] [address] PCP - General 01/17/23
--- OUTSIDE RECORDS SUMMARY | 2025-07-08 10:57 | XMS_ITS | Encounter Summary ---
Author Organization [facility] Address [address] [place] [address] Care Team Providers Care Price Analyst Name Role Phone Diana Maldonado MD Primary Care Provider Encounter Details Date Type Department Care Team ([facility] Contact Info) Description 06/27/2025 Telephone [facility] Cardiology Associates [facility] [address] [place] [address] [place] [address] Azael Lei MD [address] [place] [address] Dr [address] [place] [address] Social History Tobacco Use Types [...] for your loved ones. For example, children's tutor nursery or elderly care for an older adult? [...] 11:30 AM EST Office Visit Adult Medicine [facility] [address] [place] [address] Diana Maldonado MD [address] [place] [address] 07/28/2025 3:30 PM EST Office Visit Adult Medicine [facility] [address] [place] [address] Diana Maldonado MD [address] [place] [address] 03/02/2026 9:15 AM EDT Ancillary Procedure [facility]iology Associates - [facility] [address] [facility] [address] [place] [address] 04/20/2026 9:30 AM EDT Office Visit Vascular Surgery - [place] [address] [place] [address] Casandra Arias MD [address] [place] [address] documented as of this encounter Visit Diagnoses Not on filedocumented in this encounter Additional Health Concerns Assessment Noted Time PHQ-9 Depression Total Score: 0 02/09/20 25 11:54 AM EDT documented as of this encounter Care Teams Price Analyst Relationship Specialty Start Date End Date Diana Maldonado MD [address] [place] [address] PCP - General 01/17/23 documented as of this encounter
== END 2025-07-08 11:01 | disposition home or self-care (01) ==
LOC: HO.HNS 09:46
PROVIDERS: PCP Family Medicine; Referring Provider Neurological Surgery; Visit Provider Physician Assistant
DX: M54.9 Dorsalgia, unspecified (principal)
CPT/HCPCS: 99204